=== PATIENT | male | born 1945 | race Caucasian/White ===

== ENCOUNTER → 2016-10-21 | Outpatient (CLI) | payer BC ==
[~2016-10-21] MED LIST: FERR324T PO; LACT10SO17; LSN/10125 PO; MOTION SICKNESS PO; POLY335025; POTA10CA28 PO; WARF1TAB PO
[2016-10-21 18:28] LABS: BLOOD UREA NITROGEN 23 mg/dl (7-18); BUN/CREATININE RATIO 20.5 (10-20); CALCIUM 9.2 mg/dl (8.5-10.1); CARBON DIOXIDE 27 mmol/L (21-32); CHLORIDE 109 mmol/L (98-107); GLUCOSE 161 mg/dl (70-99); POTASSIUM 4.2 mmol/L (3.5-5.1); SODIUM 143 mmol/L (136-145)
[2016-10-22 05:52] LABS: ESTIMATED AVERAGE GLUCOSE 169 mg/dl; HA1C FLAG Normal (Normal)
== END | disposition home or self-care (01) ==
LOC: C.LABPVFM 13:27
PROVIDERS: ATTEND Nurse Practitioner
DX: E11.9 Type 2 diabetes mellitus without complications (principal)

== ENCOUNTER → 2016-12-03 | Outpatient (CLI) | payer BC ==
[2016-12-03 17:43] LABS: BASO % 0.3 %; BASO ABS # 0.02 K/uL (0-0.2); COMPLETE YES; EOS % 1.9 %; HEMATOCRIT 42.4 % (42-52); IG% 0.8 %; LYMPH % 29.4 %; LYMPH ABS # 2.29 K/uL (1.2-3.4); MEAN CELL VOLUME 88.5 fL (80-100); MEAN CORPUSCULAR HEMOGLOBIN 29.6 pg (25-34); MEAN CORPUSCULAR HGB CONC 33.5 g/dl (32-36); MEAN PLATELET VOLUME 10.7 fL (7.4-10.4); MONO % 10.8 %; NEUT % 56.8 %; PLATELET COUNT 208 K/uL (130-400); RED BLOOD COUNT 4.79 M/uL (4.7-6.1); WHITE BLOOD COUNT 7.79 K/uL (4.8-10.8)
[2016-12-03 18:26] LABS: ALT/SGPT 27 U/L (12-78); BLOOD UREA NITROGEN 25 mg/dl (7-18); BUN/CREATININE RATIO 26.6 (10-20); CALCIUM 9.3 mg/dl (8.5-10.1); CARBON DIOXIDE 25 mmol/L (21-32); CHLORIDE 106 mmol/L (98-107); CREATININE 0.92 mg/dl (0.60-1.40); GLUCOSE 154 mg/dl (70-99); POTASSIUM 3.9 mmol/L (3.5-5.1); SODIUM 139 mmol/L (136-145)
[2016-12-03 18:40] LABS: LYME DISEASE AB IGG NEG (NEG); LYME DISEASE AB IGM NEG (NEG)
[2016-12-03 18:54] LABS: ALB/GLOB RATIO 0.9 (0.9-2); ALKALINE PHOSPHATASE 61 U/L (45-117); AST/SGOT 15 U/L (15-37)
== END | disposition home or self-care (01) ==
LOC: C.LABPVFM 14:37
PROVIDERS: ATTEND Nurse Practitioner
DX: R42 Dizziness and giddiness (principal); R53.83 Other fatigue; R40.0 Somnolence

== ENCOUNTER → 2017-04-15 | Outpatient (CLI) | payer BC ==
[2017-04-15 13:28] LABS: BLOOD UREA NITROGEN 26 mg/dl (7-18); BUN/CREATININE RATIO 28.1 (10-20); CARBON DIOXIDE 26 mmol/L (21-32); CHLORIDE 109 mmol/L (98-107); CREATININE 0.91 mg/dl (0.60-1.40); GLUCOSE 137 mg/dl (70-99); POTASSIUM 4.4 mmol/L (3.5-5.1); SODIUM 143 mmol/L (136-145)
[2017-04-15 13:33] LABS: CHOLESTEROL 94 mg/dl (0-200); CHOLESTEROL/HDL RATIO 2.9; HDL CHOLESTEROL 32 mg/dl; LDL CHOLESTEROL CALCULATED 38 mg/dl; TRIGLYCERIDES 122 mg/dl (0-150); VERY LOW DENSITY LIPOPROT CALC 24 mg/dl
[2017-04-15 13:34] LABS: ESTIMATED AVERAGE GLUCOSE 157 mg/dl; HA1C FLAG Normal (Normal)
== END | disposition home or self-care (01) ==
LOC: C.LABPVFM 07:27
PROVIDERS: ATTEND Nurse Practitioner
DX: E11.9 Type 2 diabetes mellitus without complications (principal); I10 Essential (primary) hypertension; E78.5 Hyperlipidemia, unspecified

== ENCOUNTER → 2017-09-08 | Outpatient (CLI) | payer BC ==
[~2017-09-08] MED LIST changes: +ASPCH81X PO; +ATOR10TA82 PO; +MECL1TAB42 PO; +MELO7.5T5 PO; +METF-384 PO; +VSC/5 PO
--- NOTE | 2017-09-08 13:51 | DIAGNOSTIC IMAGING REPORT ---
SOFT TISS HEAD/NECK-THYROID CLINICAL HISTORY: 72 years-old Male presenting with R13.10 [id number]. TECHNIQUE: Real-time grayscale and color Doppler ultrasound imaging of the thyroid and base of the neck was performed. COMPARISON: None. FINDINGS: Right lobe: Heterogeneous echotexture. The right lobe of the thyroid measures 4.7 x 1.9 x 1.3 cm. No parenchymal hyperemia. No nodules. Left lobe: Heterogeneous echotexture secondary to the presence of nodules. The left lobe of the thyroid measures 4.4 x 2.7 x 1.5 cm. No parenchymal hyperemia. Nodules enumerated below: 1. Dominant well-defined isoechoic wider than tall 3.8 x 2.6 x 1.2 cm nodule (low suspicion pattern). Isthmus: The isthmus measures 4 mm in thickness. No parenchymal hyperemia. No nodules. IMPRESSION: Low suspicion pattern nodule measuring 3.8 cm in the left thyroid lobe. Fine-needle aspiration recommended by size criteria for the [place] [employer] if this has not already been performed. Electronically signed by: Luis M Bhatti M.D. 09/08/2017 1:50 PM Dictated Date/Time: 09/08/2017 1:48 PM
== END | disposition home or self-care (01) ==
LOC: C.ULTR 13:01
PROVIDERS: ATTEND Family Medicine
DX: R13.10 Dysphagia, unspecified (principal); E04.1 Nontoxic single thyroid nodule

== ENCOUNTER → 2017-09-22 | Day surgery (SDC) | payer BC ==
[2017-09-16 08:31] VITALS: Ht 179.1 cm; Wt 106.8 kg
[~2017-09-22] VITALS: Ht 179.1 cm; Wt 106.8 kg
[~2017-09-22] MED LIST changes: -FERR324T PO; -LACT10SO17; +LIDOCAINE HCL 2% 2 ML VIAL (20MG/ML) ONE; -MOTION SICKNESS PO; -POLY335025; -POTA10CA28 PO; +PROPOFOL IV EMULSION 10 MG/ML 20 ML VIAL IV ONE; -WARF1TAB PO
[2017-09-22 08:13] VITALS: TEMP 36.5
--- NOTE | 2017-09-22 08:30 | Endo History and Physical ---
History & Physical Date of Service: Sep 22, 2017. Chief Complaint: dysphagia Referring Physician: Shanna STAUFFER History of Present Illness 72 yo CM who presents for EGD secondary to dysphagia. Past Surgical History Hx Cardiac Surgery: No Hx Internal Defibrillator: No Hx Pacemaker: No Hx Abdominal Surgery: No Hx of Implantable Prosthesis: No Hx Post-Op Nausea and Vomiting: No Hx Cancer Surgery: No Hx Thoracic Surgery: No Hx Orthopedic: Yes (RIGHT WRIST SURGERY, RT TKA) Hx Urinary Tract Surgery: No Family History None Social History Smoking Status: Former Smoker Hx Substance Use: No Hx Alcohol Use: No Allergies Coded Allergies: No Known Allergies (Verified , 09/22/17) Current Medications Reported Home Medications Medications Dose Route/Sig Max Daily Dose Days Date Category Vesicare (Solifenacin) 5 Mg Tab 5 Mg PO QPM 09/16/17 Reported Glucophage (Metformin Hcl) 1,000 Mg Tab 1,000 Mg PO BID 09/16/17 Reported Mobic (Meloxicam) 7.5 Mg Tab 7.5 Mg PO QPM 09/16/17 Reported Meclizine Hcl 25 Mg Tab 1 Tab PO BID 09/16/17 Reported Lisinopril/Hctz 10/12.5 Mg (HCTZ/Lisinopril) 1 Ea Tab 0.5 Tab PO QPM 09/16/17 Reported Lipitor (Atorvastatin Calcium) 10 Mg Tab 10 Mg PO QPM 09/16/17 Reported Aspirin Chewable (Aspirin) 81 Mg Chew 81 Mg PO QAM 09/16/17 Reported Vital Signs Weight (Kilograms): 106.82 Height (Feet): 5 Height (Inches): 10.5 Date Time Temp Pulse Resp B/P (MAP) Pulse Ox O2 Delivery O2 Flow Rate FiO2 09/22/17 08:13 36.5 72 18 104/70 (81) 97 Room Air Physical Exam General Appearance: WD/WN, no apparent distress Respiratory/Chest: Auscultation: breath sounds normal Cardiovascular: Heart Auscultation: RRR Abdomen: Bowel Sounds: normal Inspection & Palpation: soft, non-distended, no tenderness, guarding & rebound Assessment and Plan Assessment: 72 yo CM who presents for EGD secondary to dysphagia. Plan: Proceed with EGD.
--- NOTE | 2017-09-22 08:45 | Discharge Instructions ---
Endoscopy Patient Instructions Date / Procedure(s) Performed Sep 22, 2017. EGD Allergy Information Coded Allergies: No Known Allergies (Verified , 09/22/17) Discharge Date / Findings Sep 22, 2017. Reflux esophagitis Hiatal hernia Medication Instructions Stopped Medication(s): last dose all meds on Thursday including ASA 1) Start Protonix 40mg by mouth each morning 1/2 hour prior to breakfast. 2) OK to resume all other medications today as prescribed Reported Home Medications Medications Dose Route/Sig Max Daily Dose Days Date Category Vesicare (Solifenacin) 5 Mg Tab 5 Mg PO QPM 09/16/17 Reported Glucophage (Metformin Hcl) 1,000 Mg Tab 1,000 Mg PO BID 09/16/17 Reported Mobic (Meloxicam) 7.5 Mg Tab 7.5 Mg PO QPM 09/16/17 Reported Meclizine Hcl 25 Mg Tab 1 Tab PO BID 09/16/17 Reported Lisinopril/Hctz 10/12.5 Mg (HCTZ/Lisinopril) 1 Ea Tab 0.5 Tab PO QPM 09/16/17 Reported Lipitor (Atorvastatin Calcium) 10 Mg Tab 10 Mg PO QPM 09/16/17 Reported Aspirin Chewable (Aspirin) 81 Mg Chew 81 Mg PO QAM 09/16/17 Reported Provider Instructions Activity Restrictions - No exercising or heavy lifting for 24 hours. - Do not drink alcohol the day of the procedure. - Do not drive a car or operate machinery until the day after the procedure. - Do not make any important decisions or sign important papers in 24 hours after the procedure. Following Day: - Return to full activity which may include returning to work/school. Diet Start your diet with liquids and light foods (jello, soup, juice, toast). Then eat your usual diet if not nauseated. Treatment For Common After Affects For mild abdominal pain, bloating, or excessive gas: - Rest - Eat lightly - Lie on right side Follow-Up Information Follow-up with Shanna STAUFFER as scheduled Anesthesia Information What You Should Know You have had a procedure that required some medicine to reduce anxiety and discomfort. This treatment is called moderate sedation. After receiving the treatment, you may be sleepy, but you will be able to breathe on your own. The effects of the treatment may last for several hours. Follow these instructions along with Activity/Diet recommendations noted above: * Do NOT do anything where dizziness or clumsiness would be dangerous. * Rest quietly at home today, then you can be up and about tomorrow. * Have a responsible person stay with you the rest of today. * You may have had an I.V. today. If so, you may take the dressing off later today. Recommendations Call your doctor if: * Trouble breathing * Continuous vomiting for more than 24 hours * Temperature above 101 degrees * Severe abdominal pain or bloating * Pain not relieved by pain medicine ordered * There is increased drainage or redness from any incision * A large amount of rectal bleeding greater than 2-3 tablespoons. (If you had a polyp/s removed or have hemorrhoids, a small amount of blood - from the rectum is to be expected.) * You have any unanswered questions or concerns. IN THE EVENT OF A SERIOUS EMERGENCY, GO TO THE NEAREST EMERGENCY ROOM Your discharge instructions were prepared by provider Bentley Johnson. Patient Instructions Signature Page Rodri Urrutia Patient (or Guardian) Signature/Date: I have read and understand the instructions given to me by my caregivers. Caregiver/RN/Doctor Signature/Date: The above-named patient and/or guardian has received patient instructions on this date. + Original Patient Signature Page (only) stays with chart. Please make copy for patient.
--- NOTE | 2017-09-22 08:54 | GI REPORT ---
Procedure Date: 09/22/2017 8:24 AM Procedure: Upper GI endoscopy Indications: Dysphagia Medicines: Monitored Anesthesia Care Complications: No immediate complications. Estimated Blood Loss: Estimated blood loss: none. Procedure: Pre-Anesthesia Assessment: - Prior to the procedure, a History and Physical was performed, and patient medications and allergies were reviewed. The patient's tolerance of previous anesthesia was also reviewed. The risks and benefits of the procedure and the sedation options and risks were discussed with the patient. All questions were answered, and informed consent was obtained. Prior Anticoagulants: The patient has taken aspirin, last dose was 3 days prior to procedure. ASA Grade Assessment: II - A patient with mild systemic disease. After reviewing the risks and benefits, the patient was deemed in satisfactory condition to undergo the procedure. After obtaining informed consent, the endoscope was passed under direct vision. Throughout the procedure, the patient's blood pressure, pulse, and oxygen saturations were monitored continuously. The scope was introduced through the mouth, and advanced to the second part of duodenum. The upper GI endoscopy was accomplished without difficulty. The patient tolerated the procedure well. Findings: LA Grade C (one or more mucosal breaks continuous between tops of 2 or more mucosal folds, less than 75% circumference) esophagitis with no bleeding was found. Biopsies were taken with a cold forceps for histology. A small hiatal hernia was present. The examined duodenum was normal. Impression: - LA Grade C reflux esophagitis. Biopsied. - Small hiatal hernia. - Normal examined duodenum. Recommendation: - Resume previous diet. - Use Protonix (pantoprazole) 40 mg PO daily. - Continue present medications. - Await pathology results. - Return to primary care physician as previously scheduled. Bentley Johnson DO 09/22/2017 8:53:57 AM This report has been signed electronically. Note Initiated On: 09/22/2017 8:24 AM I attest to the content of the Intraoperative Record and orders documented therein, exceptions below
--- NOTE | 2017-09-22 09:15 | Anesthesiology Progress Note ---
Anesthesia Post Op Note Date & Time Sep 22, 2017 at 09:14 Vital Signs Pain Intensity: 0 Vital Signs Past 12 Hours Date Time Temp Pulse Resp B/P (MAP) Pulse Ox O2 Delivery O2 Flow Rate FiO2 09/22/17 09:03 67 16 111/74 (86) 96 Room Air 09/22/17 08:48 81 16 97/64 (75) 96 Room Air 09/22/17 08:13 36.5 72 18 104/70 (81) 97 Room Air Notes Mental Status: alert / awake / arousable, participated in evaluation Pt Amnestic to Procedure: Yes Nausea / Vomiting: adequately controlled Pain: adequately controlled Airway Patency, RR, SpO2: stable & adequate BP & HR: stable & adequate Hydration State: stable & adequate Anesthetic Complications: no major complications apparent
[2017-09-22 09:18] VITALS: BP 121/77; PULSE 68; O2SAT 96
== END | disposition home or self-care (01) ==
LOC: C.GI 07:49
PROVIDERS: ATTEND Internal Medicine
DX: R13.10 Dysphagia, unspecified (principal); K20.9 Esophagitis, unspecified; K44.9 Diaphragmatic hernia without obstruction or gangrene; E11.9 Type 2 diabetes mellitus without complications; I10 Essential (primary) hypertension; E78.5 Hyperlipidemia, unspecified; M19.90 Unspecified osteoarthritis, unspecified site; Z87.891 Personal history of nicotine dependence; Z96.651 Presence of right artificial knee joint

== ENCOUNTER → 2017-09-23 | Outpatient (CLI) | payer BC ==
[~2017-09-23] MED LIST changes: -LIDOCAINE HCL 2% 2 ML VIAL (20MG/ML) ONE; -PROPOFOL IV EMULSION 10 MG/ML 20 ML VIAL IV ONE
--- NOTE | 2017-09-23 14:19 | DIAGNOSTIC IMAGING REPORT ---
ULTRASOUND GUIDED FINE-NEEDLE ASPIRATION BIOPSY OF A LEFT THYROID NODULE CLINICAL HISTORY: Left lobe thyroid nodule COMPARISON STUDY: Thyroid ultrasonography dated 09/08/2017 FINDINGS: A timeout was performed. The risks the procedure were explained the patient informed consent was obtained. The patient was prepped in sterile fashion. The skin was anesthetized 1% lidocaine. Under ultrasound guidance, 3 passes utilizing a 25-gauge needle were performed into the dominant left lobe thyroid nodule. Initial pathologic review indicates satisfactory material for diagnosis. There were no immediate complications. IMPRESSION: Successful ultrasound-guided fine-needle aspiration biopsy of a dominant left lobe thyroid nodule. Electronically signed by: Johan Shell M.D. 09/23/2017 2:18 PM Dictated Date/Time: 09/23/2017 2:17 PM
== END | disposition home or self-care (01) ==
LOC: C.ULTR 12:11
PROVIDERS: ATTEND Family Medicine
DX: E04.1 Nontoxic single thyroid nodule (principal)

== ENCOUNTER → 2017-10-19 | Outpatient (CLI) | payer BC ==
--- NOTE | 2017-10-19 10:46 | DIAGNOSTIC IMAGING REPORT ---
CHEST 2 VIEWS ROUTINE CLINICAL HISTORY: PULMONARY NODULES COMPARISON STUDY: Chest CT October 26, 2014. FINDINGS: Lung volumes are at the lower limits of normal. No pneumothorax or pleural effusion is present. There is no evidence for pulmonary edema. Cardiomediastinal silhouette is stable. The previously described pulmonary nodules are not well visualized by radiography. A possible 2.7 cm nodular density projects over the heart on lateral projection may be within the right middle lobe. IMPRESSION: Suspected nodular right middle lobe opacities which are difficult to evaluate by radiography. A follow-up chest CT is recommended to evaluate the previously described right middle lobe nodules. Electronically signed by: García Cornell M.D. 10/19/2017 10:44 AM Dictated Date/Time: 10/19/2017 10:40 AM
[2017-10-19 13:04] LABS: BLOOD UREA NITROGEN 24 mg/dl (7-18); CALCIUM 8.9 mg/dl (8.5-10.1); CARBON DIOXIDE 23 mmol/L (21-32); CREATININE 1.03 mg/dl (0.60-1.40); GLUCOSE 165 mg/dl (70-99); POTASSIUM 4.2 mmol/L (3.5-5.1); SODIUM 137 mmol/L (136-145)
[2017-10-19 13:08] LABS: HEMOGLOBIN A1C 7.1 % (4.5-5.6)
== END | disposition home or self-care (01) ==
LOC: C.LABPVFM 10:13
PROVIDERS: ATTEND Nurse Practitioner
DX: R91.8 Other nonspecific abnormal finding of lung field (principal)

== ENCOUNTER 2022-10-25 14:42 | Inpatient (IN) ==
--- NOTE | 2022-10-25 15:36 | Emergency Department Note ---
History of Present Illness General Chief complaint: Weakness Stated complaint: Fall, weakness Time Seen by Provider: 10/25/22 15:13 Source: patient, family, EMS (I reviewed the notes from EMS) and old records reviewed (I have reviewed the office notes from 08-12-2022) Mode of arrival: ambulatory Limitations: no limitations History of Present Illness Maximum Pain Intensity: 6 This patient is a 77-year-old male has history of vascular dementia, comes in after having increasing weakness. His says he is rarely 100% and he is also has some mild confusion. Around 8:00 this morning she noticed he was on the floor next to his very low bed. He was laying on the carpet. She checked him in the middle the night and he was in bed. There is no trauma she could not get him up she thought he was fine otherwise so she called EMS for a lift assist around 10:00 in the morning as she could not get a hold of her son. They came and lifted him up checked amount his blood sugar was 226 his vitals look good and they called here and they all decided to keep him at home she said later on he was sitting in a chair and she can get him out he seemed just too weak he can normally walk to the bathroom with a walker. He said no blood or melena in his stool that she knows of no fever no urinary symptoms other he is baseline incontinent. He did have a cough recently. His weakness has been nonfocal and diffuse. Home Medications Medication Instructions Recorded Confirmed Type aspirin 81 mg tablet,delayed 81 mg PO DAILY 04/22/18 10/25/22 History release cyanocobalamin (vitamin B-12) 1,000 mcg PO DAILY 10/15/20 10/25/22 History 1,000 mcg capsule metformin 1,000 mg tablet 1,000 mg PO BID #60 tabs 12/25/21 10/25/22 Rx magnesium oxide 400 mg PO DAILY #30 tabs 02/21/22 10/25/22 Rx memantine 10 mg tablet (Namenda) 10 mg PO BID #60 tabs 03/25/22 10/25/22 Rx atorvastatin 10 mg tablet 10 mg PO HS #90 tabs 04/03/22 10/25/22 Rx sitagliptin phosphate 50 mg tablet 50 mg PO DAILY #90 tabs 04/23/22 10/25/22 Rx (Januvia) hydrocortisone 2.5 % topical cream 1 applic OH DAILY PRN hemorrhoids 06/18/22 10/25/22 Rx with perineal applicator #30 grams (Proctosol HC) pantoprazole 40 mg tablet,delayed See Rx Instructions .Route 06/18/22 10/25/22 Rx release .COMPLEX #30 tabs donepezil 10 mg tablet 10 mg PO DAILY #90 tabs 07/11/22 10/25/22 Rx cholecalciferol (vitamin D3) 25 3,000 unit PO DAILY 09/05/22 10/25/22 History mcg (1,000 unit) capsule bupropion HCl 150 mg 24 hr tablet, 150 mg PO QAM 10/25/22 10/25/22 History extended release (Wellbutrin XL) Allergies Allergy/AdvReac Type Severity Reaction Status Date / Time No Known Allergies Allergy Verified 09/05/22 11:32 Past Med/Surg History Medical History Chronic cerebral ischemia Degenerative disc disease Diverticulosis of colon Hemorrhoid Metaplasia of esophagus Orthostatic hypotension Osteoarthritis Overactive bladder Pulmonary nodules Smokeless tobacco use Solitary thyroid nodule VBI (vertebrobasilar insufficiency) Surgical History H/O vasectomy History of knee replacement Right History of tooth extraction Family History Mother Family history of diabetes mellitus Breast cancer Grandmother (Paternal) Myocardial infarction Denies family history of Ovarian cancer Prostate cancer Colorectal cancer Social History Smoking Status: Never smoker Tobacco Type: Smokeless Tobacco (Dip or Chew) Cigarettes Per Day: CHEWS ON A CIGAR EVERY ONCE IN A WHILE; Second Hand Exposure: No; Do You Dip or Chew Tobacco: Yes; Hx Alcohol Use: No Hx Substance Use: No Preferred Language: Turkmen Communication Ability: Effective Visual Impairment: Limited Hearing Ability: Normal Design Engineering Intern Required: No Beliefs That Will Affect Care: None marital status: Current Living Situation: Spouse current occupational status: retired How many Children do You have: 1 Feels Safe at Home: Yes Childhood Exposure to Second-Hand Smoke: Yes Diet: diabetic caffeine: Yes during the past year weight has: remained stable Dental Care, Regularly: No Physical Activity Frequency: 1-2 Times per Week Seatbelt Use: always Sunscreen Use: No Do you think of yourself as: straight/heterosexual Gender Identity: Male Assistive Devices: Cane, Denture - Upper, Denture - Lower and Glasses Review of Systems A total of 10 systems reviewed and were otherwise negative Physical Exam Vital Signs Vital Signs - 24 hr 10/25/22 14:52 10/25/22 15:00 10/25/22 15:53 Temperature 37.4 C Temperature Source Oral Pulse Rate 117 H 114 H Pulse Rate [Right Finger] Pulse Rhythm Regular Pulse Strength Normal Respiratory Rate 20 Respiratory Effort / Characteristics Non-Labored Spontaneous Respiratory Depth Normal Respiratory Pattern Regular Blood Pressure 137/94 Blood Pressure [Right Arm] Blood Pressure Mean 108 Blood Pressure Mean [Right Arm] Blood Pressure Position Sitting Pulse Oximetry 91 Oxygen Delivery Method Room Air Room Air Sepsis Recent Fever Within 48 Hours No Sepsis New/Unexplained Change in Mental Status No Sepsis Action Taken by Nursing No Action Required 10/25/22 14:53 10/25/22 16:45 Temperature Temperature Source Pulse Rate Pulse Rate [Right Finger] 112 H 112 H Pulse Rhythm Pulse Strength Respiratory Rate 20 20 Respiratory Effort / Characteristics Non-Labored Non-Labored Respiratory Depth Normal Normal Respiratory Pattern Blood Pressure Blood Pressure [Right Arm] 120/84 120/84 Blood Pressure Mean Blood Pressure Mean [Right Arm] 96 96 Blood Pressure Position Pulse Oximetry 91 Oxygen Delivery Method Room Air Room Air Sepsis Recent Fever Within 48 Hours Sepsis New/Unexplained Change in Mental Status Sepsis Action Taken by Nursing General: Well developed well nourished [id number] older male who in no acute distress, breathing comfortably on room air. Normal speech. He is alert and oriented to person and place and answers most questions appropriately. HEENT: Normal cephalic atraumatic. Pupils are equal round and reactive to light. Extraocular movements are intact. Oropharynx is pink with moist mucous membranes. No swelling of the mouth lips or tongue. Neck: Supple with a midline trachea. No meningeal signs or stiffness, no JVD or bruits. No Stridor. Chest: Clear to auscultation bilaterally. No wheezes or rhonchi. No increased work of breathing. Heart: Regular rate and rhythm without murmurs or gallops. Abdomen: Soft nontender, nondistended without rebound guarding or rigidity. Extremities: No cyanosis clubbing or edema. No calf tenderness or assymetry Spine/Back. Non tender to palpation. No CVA tenderness Skin: Good turgor without rashes. Neurologic exam: Cranial nerves two through 12 are intact. Motor and sensation are intact and symmetrical throughout. Course Administered Medications Discontinued Medications Sodium Chloride (Nss 1000ml) 500 mls @ 999 mls/hr IV .Q31M ONE Stop: 10/25/22 17:30 Last Infusion: 10/25/22 17:36 Dose: 0 mls/hr Documented By: Admin: 10/25/22 17:05 Dose: 999 mls/hr Documented By: NRB Ceftriaxone Sodium (Rocephin) 2,000 mg in 70 mls @ 140 mls/hr IV NOW STA Stop: 10/25/22 17:48 Last Admin: 10/25/22 17:56 Dose: 140 mls/hr Documented By: KEVIN Medical Decision Making Differential Diagnosis Worsening of dementia, infection, UTI, anemia, trauma, intracranial hemorrhage, CVA, electrolyte or metabolic abnormality Medical Records Attestation: I reviewed the patient's medical records. Home Medications Current Medication List: was personally reviewed by me Laboratory Data Attestation: I reviewed the patient's lab results. 10/25/22 14:53 10/25/22 14:53 Lab Results 10/25/22 10/25/22 10/25/22 Range/Units 14:53 14:53 14:53 WBC 8.27 (4.8-10.8) K/ul RBC 5.30 (4.70-6.10) M/uL Hgb 15.8 (14.0-18.0) g/dl Hct 46.0 (42.0-52.0) % MCV 86.8 (80.0-100.0) fL MCH 29.8 (25.0-34.0) pg MCHC 34.3 (32.0-36.0) g/dL RDW Std Deviation 43.4 (36.4-46.3) fL RDW Coeff of Adamaris 13.9 (11.5-14.5) % Plt Count 215 (130-400) K/uL MPV 10.6 (9.4-12.4) fL Immature Gran % (Auto) 1.1 % Neut % (Auto) 70.7 % Lymph % (Auto) 13.5 % [place] % (Auto) 13.1 % Eos % (Auto) 0.8 % Baso % (Auto) 0.8 % Neut # (Auto) 5.84 (1.40-6.50) K/uL Lymph # (Auto) 1.12 L (1.2-3.4) K/uL [place] # (Auto) 1.08 H (0.11-0.59) K/uL Eos # (Auto) 0.07 (0-0.50) K/uL Baso # (Auto) 0.07 (0-0.2) K/uL Immature Gran # (Auto) 0.09 (0.01-0.20) K/uL PT 10.6 (9.0-12.0) Seconds INR 1.0 (0.9-1.1) APTT 25.2 (21.0-31.0) Seconds PTT Ratio 0.9 Sodium 137 (136-145) mmol/L Potassium 4.2 (3.5-5.1) mmol/L Chloride 100 (98-107) mmol/L Carbon Dioxide 25 (21-32) mmol/L Anion Gap 12 H (3-11) BUN 18 (6-23) mg/dl Creatinine 1.03 (0.6-1.4) mg/dl Est Cr Clr Drug Dosing 73.6 ml/min Est GFR ( Amer) 80.8 ml/min Est GFR (Non-Af Amer) 69.7 ml/min BUN/Creatinine Ratio 17.5 (10-20) Glucose 160 H (70-99(Fasting)) mg/dl Lactate (0.4-2.0) mmol/L Calcium 9.3 (8.6-10.3) mg/dl Magnesium 1.7 (1.7-2.4) mg/dl Total Bilirubin 0.4 (0.2-1.0) mg/dl AST 34 (13-39) U/L ALT 54 H (7-52) U/L Alkaline Phosphatase 55 (34-104) U/L Total Creatine Kinase 50 (30-223) U/L Troponin I High Sens 11.9 (0-20) pg/ml B-Natriuretic Peptide (0-100) pg/ml Total Protein 7.5 (6.0-8.3) gm/dl Albumin 4.0 (3.4-5.0) gm/dl Globulin 3.5 (2.5-4.0) gm/dl Albumin/Globulin Ratio 1.1 (0.9-2) TSH (0.300-4.500) uIu/ml SARS-CoV-2, RNA, NAAT (NEGATIVE) 10/25/22 10/25/22 10/25/22 Range/Units 14:53 15:49 16:14 WBC (4.8-10.8) K/ul RBC (4.70-6.10) M/uL Hgb (14.0-18.0) g/dl Hct (42.0-52.0) % MCV (80.0-100.0) fL MCH (25.0-34.0) pg MCHC (32.0-36.0) g/dL RDW Std Deviation (36.4-46.3) fL RDW Coeff of [place] (11.5-14.5) % Plt Count (130-400) K/uL MPV (9.4-12.4) fL Immature Gran % (Auto) % Neut % (Auto) % Lymph % (Auto) % [place] % (Auto) % Eos % (Auto) % Baso % (Auto) % Neut # (Auto) (1.40-6.50) K/uL Lymph # (Auto) (1.2-3.4) K/uL [place] # (Auto) (0.11-0.59) K/uL Eos # (Auto) (0-0.50) K/uL Baso # (Auto) (0-0.2) K/uL Immature Gran # (Auto) (0.01-0.20) K/uL PT (9.0-12.0) Seconds INR (0.9-1.1) APTT (21.0-31.0) Seconds PTT Ratio Sodium (136-145) mmol/L Potassium (3.5-5.1) mmol/L Chloride (98-107) mmol/L Carbon Dioxide (21-32) mmol/L Anion Gap (3-11) BUN (6-23) mg/dl Creatinine (0.6-1.4) mg/dl Est Cr Clr Drug Dosing ml/min Est GFR ( Amer) ml/min Est GFR (Non-Af Amer) ml/min BUN/Creatinine Ratio (10-20) Glucose (70-99(Fasting)) mg/dl Lactate (0.4-2.0) mmol/L Calcium (8.6-10.3) mg/dl Magnesium (1.7-2.4) mg/dl Total Bilirubin (0.2-1.0) mg/dl AST (13-39) U/L ALT (7-52) U/L Alkaline Phosphatase (34-104) U/L Total Creatine Kinase (30-223) U/L Troponin I High Sens (0-20) pg/ml B-Natriuretic Peptide 18 (0-100) pg/ml Total Protein (6.0-8.3) gm/dl Albumin (3.4-5.0) gm/dl Globulin (2.5-4.0) gm/dl Albumin/Globulin Ratio (0.9-2) TSH 1.399 (0.300-4.500) uIu/ml SARS-CoV-2, RNA, NAAT NEGATIVE (NEGATIVE) 10/25/22 Range/Units 16:14 WBC (4.8-10.8) K/ul RBC (4.70-6.10) M/uL Hgb (14.0-18.0) g/dl Hct (42.0-52.0) % MCV (80.0-100.0) fL MCH (25.0-34.0) pg MCHC (32.0-36.0) g/dL RDW Std Deviation (36.4-46.3) fL RDW Coeff of [place]aris (11.5-14.5) % Plt Count (130-400) K/uL MPV (9.4-12.4) fL Immature Gran % (Auto) % Neut % (Auto) % Lymph % (Auto) % [place] % (Auto) % Eos % (Auto) % Baso % (Auto) % Neut # (Auto) (1.40-6.50) K/uL Lymph # (Auto) (1.2-3.4) K/uL [place] # (Auto) (0.11-0.59) K/uL Eos # (Auto) (0-0.50) K/uL Baso # (Auto) (0-0.2) K/uL Immature Gran # (Auto) (0.01-0.20) K/uL PT (9.0-12.0) Seconds INR (0.9-1.1) APTT (21.0-31.0) Seconds PTT Ratio Sodium (136-145) mmol/L Potassium (3.5-5.1) mmol/L Chloride (98-107) mmol/L Carbon Dioxide (21-32) mmol/L Anion Gap (3-11) BUN (6-23) mg/dl Creatinine (0.6-1.4) mg/dl Est Cr Clr Drug Dosing ml/min Est GFR ( Amer) ml/min Est GFR (Non-Af Amer) ml/min BUN/Creatinine Ratio (10-20) Glucose (70-99(Fasting)) mg/dl Lactate 5.3 H* (0.4-2.0) mmol/L Calcium (8.6-10.3) mg/dl Magnesium (1.7-2.4) mg/dl Total Bilirubin (0.2-1.0) mg/dl AST (13-39) U/L ALT (7-52) U/L Alkaline Phosphatase (34-104) U/L Total Creatine Kinase (30-223) U/L Troponin I High Sens (0-20) pg/ml B-Natriuretic Peptide (0-100) pg/ml Total Protein (6.0-8.3) gm/dl Albumin (3.4-5.0) gm/dl Globulin (2.5-4.0) gm/dl Albumin/Globulin Ratio (0.9-2) TSH (0.300-4.500) uIu/ml SARS-CoV-2, RNA, NAAT (NEGATIVE) Imaging Data Attestation: I personally reviewed and interpreted this imaging study as follows: My Impression: Chest x-rayno acute infiltrate, failure, pneumothorax seen. Head CTno hemorrhage or mass effect Radiologist's Impression: Chest X-Ray 10/25/22 15:28 XR chest 1V portable HISTORY: weakness COMPARISON: Chest CT 10/30/2017. FINDINGS: There are low lung volumes. No pneumothorax. No pleural effusions. No focal lung consolidations to suggest a pneumonia. No evidence for pulmonary edema. The heart is normal in size. IMPRESSION: No acute process. ACT 112: Negative or not required by law. Electronically signed by: Jonnie eBrman M.D. 10/25/2022 4:[address] 10/25/22 15:[address] DOSE: 962.98 mGy.cm HISTORY: Increasing weakness and confusion TECHNIQUE: Multiaxial CT images of the head were performed without the use of intravenous contrast. Automated exposure control was utilized for this study. A dose lowering technique was utilized adhering to the principles of ALARA. Comparison: Brain MRI 04/07/2019. Findings: The paranasal sinuses and mastoid air cells are clear. The calvarium and skull base are intact. There is no mass, hematoma, midline shift, acute infarct. White matter hypodensity is nonspecific but suggestive of moderate microvascular ischemic change. The ventricles and sulci demonstrate moderate age-related involutional changes. Impression: No acute intracranial abnormality. Atrophy and microvascular ischemic changes. ACT 112: Negative or not required by law. Electronically signed by: Jonnie Berman M.D. 10/25/2022 4:16 PM ECG Data Attestation: I personally reviewed and interpreted this ECG as follows: Indication: + weakness Rate (beats per minute): 116 Rhythm: + sinus tachycardia ECG Intervals/blocks: + Left anterior fascicular block, + Normal QRS, + Normal QT and + Normal OH ECG [place]: + Left axis deviation ECG ST segments: + Normal ST segments ECG Findings: no PACs or no PVCs Comparison ECG Date: from (11/10/2011) Change: the following changes noted (Rate has increased otherwise no significant change) MDM Narrative This patient comes in as described above he has had increasing weakness and may have fallen. The bed is at a very low height and there is carpet. He was on the floor for more than a couple hours at max. Patient denies any complaints at present. The had to call the ambulance and then he was weak again and she called her son who helped her get him in the car to bring him here. This is atypical for him his symptoms seem nonfocal. IV access established EKG was obtained CAT scan of his head and multiple blood testing was obtained I also ord ered blood cultures and lactic acid as well as a cath urine. He was reassessed frequently. CAT scan of his head is unremarkable. He has no fever or white count discussed infection. No significant anemia. He has no severe electrolyte or metabolic abnormalities. Urinalysis shows 1+ ketones otherwise unremarkable. Lactic acid was elevated in the 5.4 range. He is no source of infection at this point but given the elevation, I did order Rocephin 2 g IV as well as IV fluids. The patient's had increasing weakness so it is possible that he does have an infection. He looks well otherwise besides being diffusely weak. I do think he needs to be admitted for further treatment and evaluation. COVID testing was negative. Blood and urine cultures are pending. [facility] the patient [facility] ER for these measures. Continuous cardiac monitoring: Orders placed in EMR for continuous cardiac monitoring. Upon my evaluation patient noted be in sinus tachycardia with a rate of 114. Impression & Plan Weakness, Diabetes mellitus, type 2, Fall, Elevated lactic acid level Discharge Plan Visit Data Chief Complaint: Weakness Stated Complaint: Fall, weakness ED Provider: Jacob Dwyer Discharge Problem: Weakness, Diabetes mellitus, type 2, Fall, Elevated lactic acid level Patient Disposition: Admitted As Inpatient Discharge Instructions Interventions: ED Discharge Assessment Last Done: 10/25/22 17:51
[2022-10-25 15:52] LABS: Basophils # (auto) 0.07 K/uL (0-0.2); Basophils % (auto) 0.8 %; Eosinophils # (auto) 0.07 K/uL (0-0.50); Eosinophils % (auto) 0.8 %; Hemoglobin 15.8 g/dl (14.0-18.0); Immature Granulocytes # (auto) 0.09 K/uL (0.01-0.20); Immature Granulocytes % (auto) 1.1 %; Lymphocytes # (auto) 1.12 K/uL (1.2-3.4); Lymphocytes % (auto) 13.5 %; Mean Corpuscular Hemoglobin 29.8 pg (25.0-34.0); Mean Corpuscular Hgb Conc 34.3 g/dL (32.0-36.0); Mean Corpuscular Volume 86.8 fL (80.0-100.0); Mean Platelet Volume 10.6 fL (9.4-12.4); Monocytes # (auto) 1.08 K/uL (0.11-0.59); Monocytes % (auto) 13.1 %; Neutrophils # (auto) 5.84 K/uL (1.40-6.50); Neutrophils % (auto) 70.7 %; Platelet Count 215 K/uL (130-400); RDW Coefficient of Variation 13.9 % (11.5-14.5); RDW Standard Deviation 43.4 fL (36.4-46.3); White Blood Count 8.27 K/ul (4.8-10.8)
[2022-10-25 15:57] LABS: Albumin Globulin Ratio 1.1 (0.9-2); BUN Creatinine Ratio 17.5 (10-20); Bilirubin,Total 0.4 mg/dl (0.2-1.0); Calcium 9.3 mg/dl (8.6-10.3); Creatinine Clr Calc Pharmacy 73.6 ml/min; Est GFR (African American) 80.8 ml/min; Est GFR (Non-African American) 69.7 ml/min; Globulin 3.5 gm/dl (2.5-4.0); Magnesium 1.7 mg/dl (1.7-2.4); Potassium 4.2 mmol/L (3.5-5.1); Total Protein 7.5 gm/dl (6.0-8.3)
[2022-10-25 16:03] LABS: Troponin I High Sensitivity 11.9 pg/ml (0-20)
--- NOTE | 2022-10-25 16:18 | CT Scan Report ---
HEAD CT NONCONTRAST CT DOSE: 962.98 mGy.cm HISTORY: Increasing weakness and confusion TECHNIQUE: Multiaxial CT images of the head were performed without the use of intravenous contrast. A utomated exposure control was utilized for this study. A dose lowering technique was utilized adheri ng to the principles of ALARA. Comparison: Brain MRI 04/07/2019. Findings: The paranasal sinuses and mastoid air cells are clear. The calvarium and skull base are int act. There is no mass, hematoma, midline shift, acute infarct. White matter hypodensity is nonspecifi c but suggestive of moderate microvascular ischemic change. The ventricles and sulci demonstrate mode rate age-related involutional changes. Impression: No acute intracranial abnormality. Atrophy and microvascular ischemic changes. ACT 112: Negative or not required by law. Electronically signed by: Jonnie Berman M.D. 10/25/2022 4:16 PM
[2022-10-25 16:20] LABS: Partial Thromboplastin Ratio 0.9; Partial Thromboplastin Time 25.2 Seconds (21.0-31.0); Prothrombin Time 10.6 Seconds (9.0-12.0)
--- NOTE | 2022-10-25 16:29 | XRay Report ---
XR chest 1V portable HISTORY: weakness COMPARISON: Chest CT 10/30/2017. FINDINGS: There are low lung volumes. No pneumothorax. No pleural effusions. No focal lung consolidat ions to suggest a pneumonia. No evidence for pulmonary edema. The heart is normal in size. IMPRESSION: No acute process. ACT 112: Negative or not required by law. Electronically signed by: Jonnie Berman M.D. 10/25/2022 4:28 PM
[2022-10-25] MEDS ORDERED: SODIUM CHLORIDE 0.9% 1000ML 500 ML IV ONE (17:00)
[2022-10-25] MEDS ORDERED: cefTRIAXone SODIUM 2,000 MG/70 ML BAG IV STA (17:19)
--- NOTE | 2022-10-25 17:37 | History & Physical Report ---
Date of Service October 25, 2022 Assessment & Plan (1) Weakness: Plan: -Admit to med/tele -Currently stable -At this time the differential for the patient's acute weakness includes but is not limited to viral illness, dehydration, mechanical fall, arrhythmia, stroke, and progression of his known dementia/parkinsonism -No leukocytosis, UA negative, CXR without consolidation, no fever, or other acute findings to suggest acute bacterial infection -Patient has a leukopenia with URI symptoms starting yesterday, will order full respiratory biofire for further evaluation -S/P 2gm Ceftriaxone in the ED, will hold additional abx for now -Blood cultures obtained in the ED, follow -No acute focal neuro defects on exam, CT head was negative for acute findings today, could consider a non-emergent MRI of the brain for further assessment if the rest of his initial workup is negative -ALT minimially elevated at 54, could also be associated with an acute viral illness -Will consult PT/OT, fall and aspiration precautions ordered -Symptomatic tx for URI symptoms with BID mucinex, DuoNeb trial, and incentive spirometry -Will otbain bedside dysphagia screen before ordering diet -BL SCD's and SQ lovenox for DVT PPX -AM CBC, CMP, Mag (2) Fall: Plan: -Patient was found on the ground this am by his , unsure what time he went out of bed -His bed is only inches off the ground per , no acute trauma on exam -Unsure how long he was down for, will obtain CK level for further assessment -Monitor on tele for now for possible arrhythmias -PT/OT consults placed (3) Elevated lactic acid level: Plan: -Initial lactate elevated at 5.3, likely due to acute dehydration -AG elevated at 12 with bicarb WNL -S/P 1L NSS in the ED, will give 1L Normosol now, will likely continue light IV hydration overnight as he appears clinically dry -Will follow 2 hour repeat lactate (4) Depression: Plan: -Continue wellbutrin (5) Dementia: Plan: -Continue memantine and donepezil (6) RAZ (obstructive sleep apnea): Plan: -Does not comply with CPAP with his dementia (7) Hyperlipidemia: Plan: -Hold statin until CK level results (8) Diabetes mellitus, type 2: Plan: -Hold metformin and sitagliptin -Monitor BSG AHCS, goal is 110-160 -5 units lantus BID, CF 50 -DM II diet -Adjust regimen as needed (9) Alvarado's esophagus: Plan: -Continue pantoprazole (10) Hypertension: Plan: -Stable off antihypertensives -Continue to monitor Plan The patient was discussed with Dr. Perry at the time of the admission History of Present Illness Chief Complaint: Generalized weakness, fall out of bed Primary Care Provider: EH Leiva Rodri is a 77 year old male with a PMH signficiant for Dementia, DM II, parkinsonism, RAZ, and alvarado's esophagus who presented to the [facility] ED on 10/25 via EMS for generalized weakness and a fall out of bed this am. Per the ED staff, the patient sleeps on a mattress on the floor on the first floor and his watches him on a camera from their bedroom. When she woke this am she found him on the ground next to the bed. Of note, the patient's bed/mattress in only a few inches off the ground. EMS was called who helped get him up and vitals were normal. Ems initially left but had to return as the patient was too weak to get out of the chair later in the day. In the ED he was noted to be tachycardic with HR in the 110's but otherwise stable. Labs were significant for a lymphopenia of 1.12, AG of 12 with bicarb of 25, glucose of 160, lactate of 5.3, ALT of 54. Ct of the head and CXR were negative for acute findings. Prior to admission the patient was given 1L NSS and 2gm ceftriaxone. At the time of the exam the patient was lying in bed in no acute distress with his and son/POA sitting bedside, history was obtained from the family due to the patient's mental status. They state that yesterday t he patient started to develop a cough with yellow sputum and appeared a little weaker than his baseline. His was giving him BID Mucinex for his symptoms, she noticed that he was not eating as much as he normally does yesterday. Once EMS got him into the chair today he was initially doing well, but his new BL LE weakness is new for him. He has some chronic LE weakness but is typically able to walk with a walker or cane without issue. They are unsure of the time when he fell out of bed and how long her was on the ground for. They deny recent fever, chills, and he denies chest pain, SOB, abd pain, nausea, vomiting, diarrhea, dysuria, hematuria, LE swelling and other recent trauma. The patient is a full code and his Son is his POA. Please refer to Dr. Perry's attestation for any changes to the treatment plan Allergies Allergy/AdvReac Type Severity Reaction Status Date / Time No Known Allergies Allergy Verified 09/05/22 11:32 Home Medications Medication Instructions Recorded Confirmed Type aspirin 81 mg tablet,delayed 81 mg PO DAILY 04/22/18 10/25/22 History release cyanocobalamin (vitamin B-12) 1,000 mcg PO DAILY 10/15/20 10/25/22 History 1,000 mcg capsule metformin 1,000 mg tablet 1,000 mg PO BID #60 tabs 12/25/21 10/25/22 Rx magnesium oxide 400 mg PO DAILY #30 tabs 02/21/22 10/25/22 Rx memantine 10 mg tablet (Namenda) 10 mg PO BID #60 tabs 03/25/22 10/25/22 Rx atorvastatin 10 mg tablet 10 mg PO HS #90 tabs 04/03/22 10/25/22 Rx sitagliptin phosphate 50 mg tablet 50 mg PO DAILY #90 tabs 04/23/22 10/25/22 Rx (Januvia) hydrocortisone 2.5 % topical cream 1 applic [place] DAILY PRN hemorrhoids 06/18/22 10/25/22 Rx with perineal applicator #30 grams (Proctosol HC) pantoprazole 40 mg tablet,delayed See Rx Instructions .Route 06/18/22 10/25/22 Rx release .COMPLEX #30 tabs donepezil 10 mg tablet 10 mg PO DAILY #90 tabs 07/11/22 10/25/22 Rx cholecalciferol (vitamin D3) 25 3,000 unit PO DAILY 09/05/22 10/25/22 History mcg (1,000 unit) capsule bupropion HCl 150 mg 24 hr tablet, 150 mg PO QAM 10/25/22 10/25/22 History extended release (Wellbutrin XL) Past Med/Surg History Medical History Chronic cerebral ischemia Degenerative disc disease Diverticulosis of colon Hemorrhoid Metaplasia of esophagus Orthostatic hypotension Osteoarthritis Overactive bladder Pulmonary nodules Smokeless tobacco use Solitary thyroid nodule VBI (vertebrobasilar insufficiency) Surgical History H/O vasectomy History of knee replacement Right History of tooth extraction Family History Mother Family history of diabetes mellitus Breast cancer Grandmother (Paternal) Myocardial infarction Denies family history of Ovarian cancer Prostate cancer Colorectal cancer Social History Smoking Status: Never smoker Tobacco Type: Smokeless Tobacco (Dip or Chew) Cigarettes Per Day: CHEWS ON A CIGAR EVERY ONCE IN A WHILE; Second Hand Exposure: No; Do You Dip or Chew Tobacco: Yes; Hx Alcohol Use: No Hx Substance Use: No Preferred Language: Azeri Communication Ability: Effective Visual Impairment: Limited Hearing Ability: Normal Member Of Congress Required: No Beliefs That Will Affect Care: None marital status: Current Living Situation: Spouse current occupational status: retired How many Children do You have: 1 Feels Safe at Home: Yes Childhood Exposure to Second-Hand Smoke: Yes Diet: diabetic caffeine: Yes during the past year weight has: remained stable Dental Care, Regularly: No Physical Activity Frequency: 1-2 Times per Week Seatbelt Use: always Sunscreen Use: No Do you think of yourself as: straight/heterosexual Gender Identity: Male Assistive Devices: Cane, Denture - Upper, Denture - Lower and Glasses Physical Exam Physical Exam: Physical Exam: General: In no acute distress, stated age, chronically ill-appearing but non- toxic HEENT: Normocephalic, atraumatic, no scleral icterus, pupils around round, symmetrical, and reactive to light, dry mucus membranes, trachea midline, no thyromegaly Chest/Pulm: No respiratory distress, symmetrical chest expansion, expiratory wheezing noted throughout Cardiac: RRR, no murmurs noted Abdomen: Negative for ascites and bruising, normoactive bowel sounds, soft, non-tender to palpation throughout Musculoskeletal: Symmetrical and without signs of acute trauma, upper and lo wer extremities with full ROM, no atrophy, spasticity, or flaccidity Extremities: Radial, dorsalis pedis, and posterior tibial pulses are intact and symmetrical, no edema noted in the BL LE's Skin: Warm, dry, no rashes , lesions, or scars noted Neuro: Alert and oriented to person only (baseline is fluctuating mentation), CN II-XII tested and intact, no tremors noted Psych: No acute distress, calm and cooperative during the exam Results & Data Results & Data Vital Signs (Past 12 Hours) Vital Signs Temp Pulse Pulse Resp BP BP Pulse Ox 10/25/22 16:45 112 H 20 120/84 10/25/22 14:53 112 H 20 120/84 91 10/25/22 15:53 10/25/22 15:00 114 H 10/25/22 14:52 37.4 C 117 H 20 137/94 91 O2 Del Method 10/25/22 16:45 Room Air 10/25/22 14:53 Room Air 10/25/22 15:53 Room Air 10/25/22 15:00 10/25/22 14:52 Room Air Laboratory Results Abnormal lab results 10/25/22 10/25/22 10/25/22 Range/Units 14:53 14:53 16:14 Lymph # (Auto) 1.12 L (1.2-3.4) K/uL [place] # (Auto) 1.08 H (0.11-0.59) K/uL Anion Gap 12 H (3-11) Glucose 160 H (70-99(Fasting)) mg/dl Lactate 5.3 H* (0.4-2.0) mmol/L ALT 54 H (7-52) U/L Urine Ketones (Negative) 10/25/22 Range/Units 17:42 Lymph # (Auto) (1.2-3.4) K/uL [place] # (Auto) (0.11-0.59) K/uL Anion Gap (3-11) Glucose (70-99(Fasting)) mg/dl Lactate (0.4-2.0) mmol/L ALT (7-52) U/L Urine Ketones 1+ H (Negative) Diagnostic Findings Chest X-Ray 10/25/22 15:28 XR chest 1V portable HISTORY: weakness COMPARISON: Chest CT 10/30/2017. FINDINGS: There are low lung volumes. No pneumothorax. No pleural effusions. No focal lung consolidations to suggest a pneumonia. No evidence for pulmonary edema. The heart is normal in size. IMPRESSION: No acute process. ACT 112: Negative or not required by law. Electronically signed by: Jonnie Berman M.D. 10/25/2022 4:[address] 10/25/22 15:[address] DOSE: 962.98 mGy.cm HISTORY: Increasing weakness and confusion TECHNIQUE: Multiaxial CT images of the head were performed without the use of intravenous contrast. Automated exposure control was utilized for this study. A dose lowering technique was utilized adhering to the principles of ALARA. Comparison: Brain MRI 04/07/2019. Findings: The paranasal sinuses and mastoid air cells are clear. The calvarium and skull base are intact. There is no mass, hematoma, midline shift, acute infarct. White matter hypodensity is nonspecific but suggestive of moderate microvascular ischemic change. The ventricles and sulci demonstrate moderate age-related involutional changes. Impression: No acute intracranial abnormality. Atrophy and microvascular ischemic changes. ACT 112: Negative or not required by law. Electronically signed by: Jonnie Berman M.D. 10/25/2022 4:16 PM ECG Additional Comments: Sinus tachycardia Left anterior fascicular block Abnormal ECG When compared with ECG of 10-NOV-2011 13:27, Vent. rate has increased BY 55 BPM Left anterior fascicular block is now Present Code Status & VTE Plan Code Status Full code VTE Prophylaxis Plan VTE Prophylaxis will be ordered: Yes Supervising Physician Co-Signing Physician Notes Patient seen and examined, chart reviewed, case discussed with Wilson Ryan PA-C and I agree with the assessment and plan as above except as otherwise noted Labs and images reviewed 77-year-old male w hx of DM 2, parkinsonism, dementia who presented with upper respiratory symptoms and acute on chronic weakness with elevated lactate. He does not have an MO, is clinically volume contracted. Leukopenic without transaminitis. Afebrile. CT of the head is normal, CXR is without acute process. Suspect viral URI, bio fire is pending. Given worsened ambulatory status and elevated lactate patient recommended for admission. Lactate repeat is pending, CK is pending. At bedside patient is nondistressed and eating. Lungs are clear. Limbs are warm and well-perfused. Cap refill is less than 2 seconds in the hallux bilaterally. Chest rise is symmetrical, heart rate is regular. Suspect acute weakness and volume depletion in the setting of likely viral URI. Agree with assessment and management above. Patient is with very significant acute on chronic weakness globally, PT/OT pending. CM consulted PG Care Time/CCT Total # of Minutes Spent Total Time Spent with Patient: Total time spent is greater than 50% in coordination of care (as documented) at patient's floor/unit and/or counseling patient: [place] [address] INT INP/OBS CARE 3/75MIN Patient Type Established Medical Decision Making High Complexity Diagnoses Weakness R53.1 Fall W19.XXXA Encounter type: initial encounter Elevated lactic acid level R79.89 Depression F32.A Dementia F03.90 RAZ (obstructive sleep apnea) G47.33 Hyperlipidemia E78.5 Diabetes mellitus, type 2 E11.9 Diabetes mellitus complication status: without complication Diabetes mellitus skilled nursing insulin use: without adjunct faculty for medical terminology use Alvarado's esophagus K22.70 Hypertension I10 (2) Fall Encounter type: initial encounter Qualified Code(s): W19.XXXA - Unspecified fall, initial encounter (8) Diabetes mellitus, type 2 Diabetes mellitus complication status: without complication Diabetes mellitus skilled nursing insulin use: without adjunct faculty for medical terminology use Qualified Code(s): E11.9 - Type 2 diabetes mellitus without complications
[2022-10-25 17:58] LABS: Appearance Urine Clear (Clear); Bilirubin Urine Negative (Negative); Blood Urine Negative (Negative); Color Urine Yellow; Glucose Urine UA Negative (Negative); Ketones Urine 1+ (Negative); Leukocyte Esterase Urine Negative (Negative); Nitrite Urine Negative (Negative); Protein Urine Negative (Negative); Specific Gravity Urine 1.019 (1.000-1.030); Urobilinogen Urine Negative (Negative); pH Urine 5.5 (4.5-7.5)
[2022-10-25] MEDS ORDERED: PLASMA-LYTE A 1,000 ML IV ONE (18:03)
[2022-10-25] MEDS ORDERED: CARBOHYDRATES FOR HYPOGLYCEMIA PO PRN (18:09)
[2022-10-25] MEDS ORDERED: GLUCOSE 40% GEL 15 GM TUBE PO PRN (18:09)
[2022-10-25] MEDS ORDERED: DEXTROSE 50% 50 ML SYRINGE IV PRN (18:09)
[2022-10-25] MEDS ORDERED: GLUCOSE 10 TAB/TUBE PO PRN (18:09)
[2022-10-25] MEDS ORDERED: GLUCAGON FOR INJ 1 MG VIAL SQ PRN (18:09)
[2022-10-25] MEDS ORDERED: ALBUT/IPRATROP 3MG/0.5MG NEB 3 ML VIAL NEB STA (18:10)
[2022-10-25] MEDS ORDERED: ACETAMINOPHEN 325 MG TAB PO STA (20:34)
[2022-10-25 21:02] LABS: Adenovirus PCR Not Detected (NotDetected); Bordetella parapertussis PCR Not Detected (NotDetected); Bordetella pertussis PCR Not Detected (NotDetected); Chlamydia pneumoniae PCR Not Detected (NotDetected); Coronavirus 229E PCR Not Detected (NotDetected); Coronavirus CoV-2 (COVID19)PCR Not Detected (NotDetected); Coronavirus HKU1 PCR Not Detected (NotDetected); Coronavirus NL63 PCR Not Detected (NotDetected); Coronavirus OC43PCR Not Detected (NotDetected); Human Metapneumovirus PCR Not Detected (NotDetected); Influenza A PCR Not Detected (NotDetected); Influenza B PCR Not Detected (NotDetected); Mycoplasma pneumoniae PCR Not Detected (NotDetected); Parainfluenza Virus 1 PCR Not Detected (NotDetected); Parainfluenza Virus 2 PCR Not Detected (NotDetected); Parainfluenza Virus 4 PCR Not Detected (NotDetected); Respiratory Syncytial VirusPCR Not Detected (NotDetected); Rhinovirus/Enterovirus PCR Not Detected (NotDetected)
[2022-10-25 21:11] LABS: Parainfluenza Virus 3 PCR DETECTED (NotDetected)
[2022-10-25] MEDS: INSULIN ASPART PER UNIT CHARGE SC SCH (22:58)
[2022-10-25] MEDS: LANTUS PER UNIT CHARGE SQ SCH (22:58)
[2022-10-25] MEDS: ENOXAPARIN INJ 40 MG/0.4 ML SYR SQ SCH (23:03)
[2022-10-25] MEDS: MEMANTINE HCL 10 MG TAB PO SCH (23:04)
[2022-10-25] MEDS: PLASMA-LYTE A 1,000 ML IV SCH (23:52)
[2022-10-25] MEDS: guaiFENesin 600 MG TABCR PO SCH (23:52)
[2022-10-26] MEDS ORDERED: ACETAMINOPHEN 325 MG TAB PO PRN (02:30)
--- NOTE | 2022-10-26 07:08 | Electrocardiogram Report ---
Test Reason : Blood Pressure : / mmHG Vent. Rate : 116 BPM Atrial Rate : 116 BPM P-R Int : 132 ms QRS Dur : 098 ms QT Int : 338 ms P-R-T Axes : 015 -47 089 degrees QTc Int : 469 ms Sinus tachycardia Left anterior fascicular block Abnormal ECG When compared with ECG of 10-NOV-2011 13:27, Vent. rate has increased BY 55 BPM Left anterior fascicular block is now Present Confirmed by Bill Bear ([id number]) on 10/26/2022 7:07:30 AM Referred By: REFERRED SELF Confirmed By:Edy Bear
[2022-10-26] MEDS: LANTUS PER UNIT CHARGE SQ SCH ×2 (08:15→23:15)
[2022-10-26] MEDS: INSULIN ASPART PER UNIT CHARGE SC SCH ×4 (08:16→23:15)
[2022-10-26] MEDS: MEMANTINE HCL 10 MG TAB PO SCH ×2 (08:17→22:56)
[2022-10-26] MEDS: guaiFENesin 600 MG TABCR PO SCH ×2 (08:17→22:56)
[2022-10-26] MEDS: MAGNESIUM OXIDE 400 MG TAB PO SCH (08:17)
[2022-10-26] MEDS: PANTOprazole 40 MG TAB PO SCH (08:17)
[2022-10-26] MEDS: DONEPEZIL HCL 10 MG TAB PO SCH (08:17)
[2022-10-26] MEDS: ASPIRIN 81 MG ECTAB PO SCH (08:17)
[2022-10-26] MEDS: buPROPion XL 150 MG TABCR PO SCH (08:17)
[2022-10-26 08:19] LABS: Basophils # (auto) 0.05 K/uL (0-0.2); Basophils % (auto) 0.5 %; Eosinophils # (auto) 0.02 K/uL (0-0.50); Eosinophils % (auto) 0.2 %; Hematocrit (blood only) 37.5 % (42.0-52.0); Hemoglobin 12.9 g/dl (14.0-18.0); Immature Granulocytes # (auto) 0.06 K/uL (0.01-0.20); Immature Granulocytes % (auto) 0.6 %; Lymphocytes # (auto) 1.54 K/uL (1.2-3.4); Lymphocytes % (auto) 16.3 %; Mean Corpuscular Hemoglobin 29.3 pg (25.0-34.0); Mean Corpuscular Hgb Conc 34.4 g/dL (32.0-36.0); Mean Corpuscular Volume 85.2 fL (80.0-100.0); Mean Platelet Volume 10.4 fL (9.4-12.4); Monocytes # (auto) 1.31 K/uL (0.11-0.59); Monocytes % (auto) 13.9 %; Neutrophils # (auto) 6.46 K/uL (1.40-6.50); Neutrophils % (auto) 68.5 %; Platelet Count 175 K/uL (130-400); RDW Coefficient of Variation 13.9 % (11.5-14.5); White Blood Count 9.44 K/ul (4.8-10.8)
[2022-10-26 08:35] LABS: Albumin Globulin Ratio 1.1 (0.9-2); Albumin Level 3.3 gm/dl (3.4-5.0); BUN Creatinine Ratio 17.4 (10-20); Bilirubin,Total 0.4 mg/dl (0.2-1.0); Calcium 8.3 mg/dl (8.6-10.3); Creatinine Clr Calc Pharmacy 82.2 ml/min; Est GFR (African American) 92.7 ml/min; Est GFR (Non-African American) 79.9 ml/min; Globulin 2.9 gm/dl (2.5-4.0); Magnesium 1.6 mg/dl (1.7-2.4); Potassium 4.1 mmol/L (3.5-5.1); Total Protein 6.2 gm/dl (6.0-8.3)
[2022-10-26] MEDS: PLASMA-LYTE A 1,000 ML IV SCH (10:07)
--- NOTE | 2022-10-26 13:33 | Hospitalist Progress Note ---
Date of Service October 26, 2022 Assessment & Plan (1) Weakness: Plan: Generalized. Due to viral illness. Supportive care. OT and PT assessments requested. (2) Fall: Plan: Mechanical. Supportive care. OT and PT assessments requested (3) Elevated lactic acid level: Plan: No sepsis on admission. Probably related to acute viral illness. We will follow (4) Depression: Plan: Stable. Continue wellbutrin (5) Dementia: Plan: Stable. Continue memantine and donepezil (6) RAZ (obstructive sleep apnea): Plan: Stable. He does not comply with CPAP usage (7) Hyperlipidemia: Plan: Stable. Statin temporarily on hold (8) Diabetes mellitus, type 2: Plan: Usual oral medications are on hold. Low-dose Lantus basal insulin therapy for now. Sliding scale coverage as needed. ADA diet. (9) Hollis's esophagus: Plan: Stable. Continue pantoprazole (10) Hypertension: Plan: Stable off antihypertensives. Continue to monitor Plan To be determined. OT and PT assessments requested. Admission and Anticipated Discharge Date Admission Date: October 25, 2022 Subjective Alert and oriented. No distress. Generalized weakness from acute viral syndrome. Parainfluenza has been isolated. OT and PT were assessments requested. IV rate has been tapered down. Insulin replace his usual oral medications while hospitalized Review of Systems Review of Systems: Constitutional-no fever or chills ENT-no blurred vision, no double vision, no epistaxis, no sore throat Respiratory-no cough, no wheezing, no shortness of breath Cardiac-no palpitations, no chest pain, no syncope GI-no nausea, vomiting, diarrhea, melena, hematochezia -no urinary retention, no urinary incontinence, no dysuria, no hematuria Musculoskeletal-no joint pain, no muscle tenderness Skin-no bruising, no rashes, no pruritus Neuro-generalized weakness. No focal deficits Psych-no depression, no anxiety Physical Exam Physical Exam: General-alert and oriented x3, no fevers, no chills HEENT-head atraumatic and normocephalic, pupils equal and reactive to light, extraocular muscles intact Neck-no lymphadenopathy or thyromegaly, trachea midline Chest-clear to auscultation percussion. No rales wheezing or rhonchi Cardiac-regular rate and rhythm, normal S1 and S2 Abdomen-normal bowel sounds, nontender, no hepatosplenomegaly Extremities-no cyanosis, clubbing, or edema Neuro-cranial nerves II through XII intact, motor and sensory function within normal limits, strength symmetrical with generalized weakness , no focal def icits Psych-normal affect, normal mood Results & Data Results & Data Vital Signs (Past 12 Hours) Vital Signs Temp Pulse Pulse Resp BP Pulse Ox O2 Del Method 10/26/22 11:49 36.8 C 94 H 16 130/80 96 Nasal Cannula 10/26/22 07:00 107 H 10/26/22 10:03 37.8 C H 10/26/22 08:11 37.5 C 107 H 16 159/105 H 93 Nasal Cannula 10/26/22 06:00 94 Nasal Cannula 10/26/22 05:28 92 Nasal Cannula 10/26/22 05:15 109 H 16 87 L Nasal Cannula 10/26/22 02:31 37.2 C 114 H 18 134/79 90 Nasal Cannula O2 Flow Rate 10/26/22 11:49 4 10/26/22 07:00 10/26/22 10:03 10/26/22 08:11 4 10/26/22 06:00 4 10/26/22 05:28 4 10/26/22 05:15 2 10/26/22 02:31 2 Laboratory Results 10/26/22 07:18 10/26/22 07:18 PG Care Time/CCT Total # of Minutes Spent Total Time Spent with Patient: Total time spent is greater than 50% in coordination of care (as documented) at patient's floor/unit and/or counseling patient: Coding Level of Care Code 66431 SUB INP/OBS CARE 3/50MIN Diagnoses Weakness R53.1 Fall W19.XXXA Encounter type: initial encounter Elevated lactic acid level R79.89 Depression F32.A Dementia F03.90 RAZ (obstructive sleep apnea) G47.33 Hyperlipidemia E78.5 Diabetes mellitus, type 2 E11.9 Diabetes mellitus complication status: without complication Diabetes mellitus assistant terminal manager insulin use: without assistant terminal manager use Hollis's esophagus K22.70 Hypertension I10 (2) Fall Encounter type: initial encounter Qualified Code(s): W19.XXXA - Unspecified fall, initial encounter (8) Diabetes mellitus, type 2 Diabetes mellitus complication status: without complication Diabetes mellitus assistant terminal manager insulin use: without assistant terminal manager use Qualified Code(s): E11.9 - Type 2 diabetes mellitus without complications
[2022-10-26] MEDS: ALBUT/IPRATROP 3MG/0.5MG NEB 3 ML VIAL NEB SCH ×2 (15:01→19:24)
[2022-10-26] MEDS: ENOXAPARIN INJ 40 MG/0.4 ML SYR SQ SCH (23:16)
[2022-10-27 06:50] LABS: Basophils # (auto) 0.05 K/uL (0-0.2); Basophils % (auto) 0.7 %; Eosinophils # (auto) 0.21 K/uL (0-0.50); Eosinophils % (auto) 2.7 %; Hematocrit (blood only) 37.8 % (42.0-52.0); Hemoglobin 12.7 g/dl (14.0-18.0); Immature Granulocytes # (auto) 0.04 K/uL (0.01-0.20); Immature Granulocytes % (auto) 0.5 %; Lymphocytes # (auto) 1.63 K/uL (1.2-3.4); Lymphocytes % (auto) 21.3 %; Mean Corpuscular Hemoglobin 29.1 pg (25.0-34.0); Mean Corpuscular Hgb Conc 33.6 g/dL (32.0-36.0); Mean Corpuscular Volume 86.5 fL (80.0-100.0); Mean Platelet Volume 10.1 fL (9.4-12.4); Neutrophils # (auto) 4.74 K/uL (1.40-6.50); Neutrophils % (auto) 61.8 %; Platelet Count 159 K/uL (130-400); RDW Standard Deviation 44.1 fL (36.4-46.3); Red Blood Count 4.37 M/uL (4.70-6.10); White Blood Count 7.67 K/ul (4.8-10.8)
[2022-10-27] MEDS: ALBUT/IPRATROP 3MG/0.5MG NEB 3 ML VIAL NEB SCH ×4 (07:00→19:49)
[2022-10-27 07:12] LABS: BUN Creatinine Ratio 15.8 (10-20); Calcium 8.5 mg/dl (8.6-10.3); Creatinine Clr Calc Pharmacy 97.7 ml/min
[2022-10-27] MEDS: INSULIN ASPART PER UNIT CHARGE SC SCH ×4 (08:48→20:17)
[2022-10-27] MEDS: DONEPEZIL HCL 10 MG TAB PO SCH (09:21)
[2022-10-27] MEDS: ASPIRIN 81 MG ECTAB PO SCH (09:21)
[2022-10-27] MEDS: MAGNESIUM OXIDE 400 MG TAB PO SCH (09:21)
[2022-10-27] MEDS: MEMANTINE HCL 10 MG TAB PO SCH ×2 (09:21→20:17)
[2022-10-27] MEDS: guaiFENesin 600 MG TABCR PO SCH ×2 (09:22→20:17)
[2022-10-27] MEDS: PANTOprazole 40 MG TAB PO SCH (09:22)
[2022-10-27] MEDS: buPROPion XL 150 MG TABCR PO SCH (09:22)
[2022-10-27] MEDS: LANTUS PER UNIT CHARGE SQ SCH ×2 (09:26→20:18)
--- NOTE | 2022-10-27 11:32 | Electrocardiogram Report ---
Test Reason : Blood Pressure : / mmHG Vent. Rate : 111 BPM Atrial Rate : 111 BPM P-R Int : 134 ms QRS Dur : 096 ms QT Int : 350 ms P-R-T Axes : 024 -42 085 degrees QTc Int : 476 ms Poor data quality, interpretation may be adversely affected Sinus tachycardia Left axis deviation Abnormal ECG When compared with ECG of 25-OCT-2022 14:49, No significant change was found Confirmed by Alexandro Carrillo ([id number]) on 10/27/2022 11:32:19 AM Referred By: REFERRED SELF Confirmed By:Alexandro Carrillo
--- NOTE | 2022-10-27 16:51 | Hospitalist Progress Note ---
Date of Service October 27, 2022 Assessment & Plan (1) Weakness: Plan: Generalized. Due to viral illness. Supportive care. OT and PT assessments requested. Awaiting placement. (2) Fall: Plan: Mechanical. Supportive care. OT and PT assessments requested (3) Elevated lactic acid level: Plan: No sepsis on admission. Probably related to acute viral illness. (4) Depression: Plan: Stable. Continue wellbutrin (5) Dementia: Plan: Stable. Continue memantine and donepezil (6) RAZ (obstructive sleep apnea): Plan: Stable. He does not comply with CPAP usage (7) Hyperlipidemia: Plan: Stable. Statin temporarily on hold (8) Diabetes mellitus, type 2: Plan: Usual oral medications are on hold. Low-dose Lantus basal insulin therapy for now. Sliding scale coverage as needed. ADA diet. (9) Hollis's esophagus: Plan: Stable. Continue pantoprazole (10) Hypertension: Plan: Stable off antihypertensives. Continue to monitor Plan Awaiting placement. Admission and Anticipated Discharge Date Admission Date: October 25, 2022 Subjective Patient feels well overall. Denies chest pain or shortness of breath. Still feeling weak in general. Review of Systems Review of Systems: All systems reviewed & are unremarkable except as noted in Subjective Physical Exam Physical Exam: General: Awake, conversant Heart: S1, S2/regular rate and rhythm, no murmur rubs or gallops Lungs: Clear to auscultation bilaterally. Normal effort Abdomen: Soft/nontender/nondistended. No hepatosplenomegaly Extremities: No clubbing/cyanosis. No edema Behavior: Appropriate, cooperative Results & Data Results & Data Vital Signs (Past 12 Hours) Vital Signs Temp Pulse Resp BP Pulse Ox O2 Del Method O2 Flow Rate 10/27/22 15:28 93 H 18 90 Room Air 10/27/22 11:51 36.6 C 103 H 19 160/96 H 93 Room Air 10/27/22 11:14 95 H 16 93 Room Air 10/27/22 08:06 36.8 C 73 19 152/91 H 93 Nasal Cannula 2 10/27/22 07:02 86 16 97 Nasal Cannula 3 Laboratory Results Abnormal lab results 10/26/22 10/26/22 10/27/22 Range/Units 20:04 20:04 05:39 RBC 4.37 L (4.70-6.10) M/uL Hgb 12.7 L (14.0-18.0) g/dl Hct 37.8 L (42.0-52.0) % [place] # (Auto) 1.00 H (0.11-0.59) K/uL Glucose (70-99(Fasting)) mg/dl POC Glucose 167 H 167 H (70-99) mg/dl Calcium (8.6-10.3) mg/dl 10/27/22 10/27/22 10/27/22 Range/Units 05:39 07:32 11:40 RBC (4.70-6.10) M/uL Hgb (14.0-18.0) g/dl Hct (42.0-52.0) % [place] # (Auto) (0.11-0.59) K/uL Glucose 164 H (70-99(Fasting)) mg/dl POC Glucose 159 H 207 H (70-99) mg/dl Calcium 8.5 L (8.6-10.3) mg/dl 10/27/22 Range/Units 16:42 RBC (4.70-6.10) M/uL Hgb (14.0-18.0) g/dl Hct (42.0-52.0) % [place] # (Auto) (0.11-0.59) K/uL Glucose (70-99(Fasting)) mg/dl POC Glucose 173 H (70-99) mg/dl Calcium (8.6-10.3) mg/dl PG Care Time/CCT Total # of Minutes Spent Total Time Spent with Patient: Total time spent is greater than 50% in coordination of care (as documented) at patient's floor/unit and/or counseling patient: Coding Level of Care Code 74555 SUB INP/OBS CARE 235MIN Diagnoses Weakness R53.1 Fall W19.XXXA Encounter type: initial encounter Elevated lactic acid level R79.89 Depression F32.A Dementia F03.90 RAZ (obstructive sleep apnea) G47.33 Hyperlipidemia E78.5 Diabetes mellitus, type 2 E11.9 Diabetes mellitus complication status: without complication Diabetes mellitus extermination supervisor insulin use: without half-way use Hollis's esophagus K22.70 Hypertension I10 (2) Fall Encounter type: initial encounter Qualified Code(s): W19.XXXA - Unspecified fall, initial encounter (8) Diabetes mellitus, type 2 Diabetes mellitus complication status: without complication Diabetes mellitus extermination supervisor insulin use: without half-way use Qualified Code(s): E11.9 - Type 2 diabetes mellitus without complications
[2022-10-27] MEDS: ENOXAPARIN INJ 40 MG/0.4 ML SYR SQ SCH (20:18)
[2022-10-28 06:49] LABS: Basophils # (auto) 0.03 K/uL (0-0.2); Basophils % (auto) 0.5 %; Eosinophils # (auto) 0.19 K/uL (0-0.50); Eosinophils % (auto) 3.4 %; Hemoglobin 12.8 g/dl (14.0-18.0); Immature Granulocytes # (auto) 0.02 K/uL (0.01-0.20); Immature Granulocytes % (auto) 0.4 %; Lymphocytes # (auto) 1.54 K/uL (1.2-3.4); Lymphocytes % (auto) 27.7 %; Mean Corpuscular Hemoglobin 28.4 pg (25.0-34.0); Mean Corpuscular Hgb Conc 32.8 g/dL (32.0-36.0); Mean Corpuscular Volume 86.5 fL (80.0-100.0); Mean Platelet Volume 10.1 fL (9.4-12.4); Monocytes # (auto) 0.62 K/uL (0.11-0.59); Monocytes % (auto) 11.2 %; Neutrophils # (auto) 3.16 K/uL (1.40-6.50); Neutrophils % (auto) 56.8 %; Platelet Count 163 K/uL (130-400); RDW Coefficient of Variation 13.3 % (11.5-14.5); RDW Standard Deviation 42.2 fL (36.4-46.3); Red Blood Count 4.51 M/uL (4.70-6.10); White Blood Count 5.56 K/ul (4.8-10.8)
[2022-10-28 07:17] LABS: BUN Creatinine Ratio 15.9 (10-20); Calcium 8.8 mg/dl (8.6-10.3); Creatinine Clr Calc Pharmacy 109.7 ml/min; Est GFR (African American) 106.1 ml/min; Est GFR (Non-African American) 91.6 ml/min; Potassium 3.5 mmol/L (3.5-5.1)
[2022-10-28] MEDS: ALBUT/IPRATROP 3MG/0.5MG NEB 3 ML VIAL NEB SCH ×4 (07:17→19:26)
[2022-10-28] MEDS: ASPIRIN 81 MG ECTAB PO SCH (08:44)
[2022-10-28] MEDS: guaiFENesin 600 MG TABCR PO SCH ×2 (08:44→21:18)
[2022-10-28] MEDS: buPROPion XL 150 MG TABCR PO SCH (08:44)
[2022-10-28] MEDS: MEMANTINE HCL 10 MG TAB PO SCH ×2 (08:44→21:18)
[2022-10-28] MEDS: MAGNESIUM OXIDE 400 MG TAB PO SCH (08:45)
[2022-10-28] MEDS: PANTOprazole 40 MG TAB PO SCH (08:45)
[2022-10-28] MEDS: INSULIN ASPART PER UNIT CHARGE SC SCH ×4 (09:01→21:17)
[2022-10-28] MEDS: DONEPEZIL HCL 10 MG TAB PO SCH (09:01)
[2022-10-28] MEDS: LANTUS PER UNIT CHARGE SQ SCH ×2 (10:48→21:17)
--- NOTE | 2022-10-28 16:46 | Hospitalist Progress Note ---
Date of Service October 28, 2022 Assessment & Plan (1) Weakness: Plan: Generalized. Due to viral illness. Supportive care. OT and PT assessments requested. Awaiting placement. (2) Fall: Plan: Mechanical. Supportive care. OT and PT assessments requested (3) Elevated lactic acid level: Plan: No sepsis on admission. Probably related to acute viral illness. (4) Depression: Plan: Stable. Continue wellbutrin (5) Dementia: Plan: Stable. Continue memantine and donepezil (6) RAZ (obstructive sleep apnea): Plan: Stable. He does not comply with CPAP usage (7) Hyperlipidemia: Plan: Stable. Statin temporarily on hold (8) Diabetes mellitus, type 2: Plan: Usual oral medications are on hold. Low-dose Lantus basal insulin therapy for now. Sliding scale coverage as needed. ADA diet. (9) Hollis's esophagus: Plan: Stable. Continue pantoprazole (10) Hypertension: Plan: Stable off antihypertensives. Continue to monitor Plan Awaiting placement. Admission and Anticipated Discharge Date Admission Date: October 27, 2022 Subjective Patient feels well overall. Denies chest pain or shortness of breath. Spoke to on the phone Review of Systems Review of Systems: All systems reviewed & are unremarkable except as noted in Subjective Physical Exam Physical Exam: General: Awake, conversant Heart: S1, S2/regular rate and rhythm, no murmur rubs or gallops Lungs: Clear to auscultation bilaterally. Normal effort Abdomen: Soft/nontender/nondistended. No hepatosplenomegaly Extremities: No clubbing/cyanosis. No edema Behavior: Appropriate, cooperative Results & Data Results & Data Vital Signs (Past 12 Hours) Vital Signs Temp Pulse Pulse Resp BP Pulse Ox O2 Del Method 10/28/22 16:00 96 H 10/28/22 08:00 85 10/28/22 15:37 80 20 95 Room Air 10/28/22 15:20 36.5 C 84 18 129/74 92 Room Air 10/28/22 12:15 37.1 C 74 18 136/86 98 Oxymask, Nebulizer 10/28/22 11:43 Room Air 10/28/22 11:22 83 18 96 Room Air 10/28/22 07:43 36.8 C 68 18 145/87 H 93 Room Air 10/28/22 07:17 78 18 94 Room Air O2 Flow Rate 10/28/22 16:00 10/28/22 08:00 10/28/22 15:37 10/28/22 15:20 10/28/22 12:15 8 10/28/22 11:43 10/28/22 11:22 10/28/22 07:43 10/28/22 07:17 Laboratory Results Abnormal lab results 10/27/22 10/28/22 10/28/22 Range/Units 20:12 05:42 05:42 RBC 4.51 L (4.70-6.10) M/uL Hgb 12.8 L (14.0-18.0) g/dl Hct 39.0 L (42.0-52.0) % [place] # (Auto) 0.62 H (0.11-0.59) K/uL Glucose 165 H (70-99(Fasting)) mg/dl POC Glucose 226 H (70-99) mg/dl 10/28/22 10/28/22 10/28/22 Range/Units 07:45 11:33 16:23 RBC (4.70-6.10) M/uL Hgb (14.0-18.0) g/dl Hct (42.0-52.0) % [place] # (Auto) (0.11-0.59) K/uL Glucose (70-99(Fasting)) mg/dl POC Glucose 185 H 200 H 157 H (70-99) mg/dl PG Care Time/CCT Total # of Minutes Spent Total Time Spent with Patient: Total time spent is greater than 50% in coordination of care (as documented) at patient's floor/unit and/or counseling patient: Coding Level of Care Code 14844 SUB INP/OBS CARE 2/35MIN Diagnoses Weakness R53.1 Fall W19.XXXA Encounter type: initial encounter Elevated lactic acid level R79.89 Depression F32.A Dementia F03.90 RAZ (obstructive sleep apnea) G47.33 Hyperlipidemia E78.5 Diabetes mellitus, type 2 E11.9 Diabetes mellitus complication status: without complication Diabetes mellitus retirement insulin use: without retirement use Hollis's esophagus K22.70 Hypertension I10 (2) Fall Encounter type: initial encounter Qualified Code(s): W19.XXXA - Unspecified fall, initial encounter (8) Diabetes mellitus, type 2 Diabetes mellitus complication status: without complication 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
[2022-10-28] MEDS: ENOXAPARIN INJ 40 MG/0.4 ML SYR SQ SCH (21:18)
[2022-10-29] MEDS: ALBUT/IPRATROP 3MG/0.5MG NEB 3 ML VIAL NEB SCH (07:25)
[2022-10-29 07:47] LABS: BUN Creatinine Ratio 15.5 (10-20); Calcium 8.8 mg/dl (8.6-10.3); Creatinine Clr Calc Pharmacy 90.1 ml/min; Est GFR (African American) 97.9 ml/min; Est GFR (Non-African American) 84.5 ml/min; Potassium 3.7 mmol/L (3.5-5.1)
[2022-10-29] MEDS: INSULIN ASPART PER UNIT CHARGE SC SCH ×4 (09:02→20:31)
[2022-10-29] MEDS: guaiFENesin 600 MG TABCR PO SCH ×2 (09:02→20:32)
[2022-10-29] MEDS: MEMANTINE HCL 10 MG TAB PO SCH ×2 (09:03→20:33)
[2022-10-29] MEDS: ASPIRIN 81 MG ECTAB PO SCH (09:03)
[2022-10-29] MEDS: DONEPEZIL HCL 10 MG TAB PO SCH (09:03)
[2022-10-29] MEDS: buPROPion XL 150 MG TABCR PO SCH (09:03)
[2022-10-29] MEDS: MAGNESIUM OXIDE 400 MG TAB PO SCH (09:03)
[2022-10-29] MEDS: PANTOprazole 40 MG TAB PO SCH (09:04)
[2022-10-29] MEDS ORDERED: ALBUT/IPRATROP 3MG/0.5MG NEB 3 ML VIAL NEB PRN (10:07)
[2022-10-29] MEDS: LANTUS PER UNIT CHARGE SQ SCH ×2 (11:52→20:31)
--- NOTE | 2022-10-29 16:30 | Hospitalist Progress Note ---
Date of Service October 29, 2022 Assessment & Plan (1) Weakness: Plan: Generalized. Due to viral illness. Supportive care. OT and PT assessments requested. Awaiting placement. (2) Fall: Plan: Mechanical. Supportive care. OT and PT assessments requested (3) Elevated lactic acid level: Plan: No sepsis on admission. Probably related to acute viral illness. (4) Depression: Plan: Stable. Continue wellbutrin (5) Dementia: Plan: Stable. Continue memantine and donepezil (6) RAZ (obstructive sleep apnea): Plan: Stable. He does not comply with CPAP usage (7) Hyperlipidemia: Plan: Stable. Statin temporarily on hold (8) Diabetes mellitus, type 2: Plan: Usual oral medications are on hold. Low-dose Lantus basal insulin therapy for now. Sliding scale coverage as needed. ADA diet. (9) Hollis's esophagus: Plan: Stable. Continue pantoprazole (10) Hypertension: Plan: Stable off antihypertensives. Continue to monitor Plan Likely discharge tomorrow: residential placement versus home with health. Admission and Anticipated Discharge Date Admission Date: October 27, 2022 Subjective Patient feels well overall. Denies chest pain or shortness of breath. Review of Systems Review of Systems: All systems reviewed & are unremarkable except as noted in Subjective Physical Exam Physical Exam: General: Awake, conversant Heart: S1, S2/regular rate and rhythm, no murmur rubs or gallops Lungs: Clear to auscultation bilaterally. Normal effort Abdomen: Soft/nontender/nondistended. No hepatosplenomegaly Extremities: No clubbing/cyanosis. No edema Behavior: Appropriate, cooperative Results & Data Results & Data Vital Signs (Past 12 Hours) Vital Signs Temp Pulse Resp BP Pulse Ox O2 Del Method 10/29/22 15:33 36.7 C 75 18 150/87 H 93 Room Air 10/29/22 08:00 36.5 C 89 18 152/101 H 93 Room Air 10/29/22 07:26 81 18 95 Room Air Laboratory Results Abnormal lab results 10/28/22 10/29/22 10/29/22 Range/Units 20:09 06:54 08:00 Glucose 169 H (70-99(Fasting)) mg/dl POC Glucose 170 H 155 H (70-99) mg/dl 10/29/22 Range/Units 11:33 Glucose (70-99(Fasting)) mg/dl POC Glucose 179 H (70-99) mg/dl PG Care Time/CCT Total # of Minutes Spent Total Time Spent with Patient: Total time spent is greater than 50% in coordination of care (as documented) at patient's floor/unit and/or counseling patient: Coding Level of Care Code 69680 SUB INP/OBS CARE 2/35MIN Diagnoses Weakness R53.1 Fall W19.XXXA Encounter type: initial encounter Elevated lactic acid level R79.89 Depression F32.A Dementia F03.90 RAZ (obstructive sleep apnea) G47.33 Hyperlipidemia E78.5 Diabetes mellitus, type 2 E11.9 Diabetes mellitus complication status: without complication Diabetes mellitus group home insulin use: without group home use Hollis's esophagus K22.70 Hypertension I10 (2) Fall Encounter type: initial encounter Qualified Code(s): W19.XXXA - Unspecified fall, initial encounter (8) Diabetes mellitus, type 2 Diabetes mellitus complication status: without complication Diabetes mellitus group home insulin use: without group home use Qualified Code(s): E11.9 - Type 2 diabetes mellitus without complications
[2022-10-29] MEDS: ENOXAPARIN INJ 40 MG/0.4 ML SYR SQ SCH (20:31)
[2022-10-30] MEDS: MEMANTINE HCL 10 MG TAB PO SCH (08:47)
[2022-10-30] MEDS: PANTOprazole 40 MG TAB PO SCH (08:47)
[2022-10-30] MEDS: ASPIRIN 81 MG ECTAB PO SCH (08:47)
[2022-10-30] MEDS: buPROPion XL 150 MG TABCR PO SCH (08:47)
[2022-10-30] MEDS: MAGNESIUM OXIDE 400 MG TAB PO SCH (08:47)
[2022-10-30] MEDS: guaiFENesin 600 MG TABCR PO SCH (08:47)
[2022-10-30] MEDS: DONEPEZIL HCL 10 MG TAB PO SCH (08:47)
[2022-10-30] MEDS: INSULIN ASPART PER UNIT CHARGE SC SCH ×2 (08:56→12:27)
[2022-10-30] MEDS: LANTUS PER UNIT CHARGE SQ SCH (08:56)
--- NOTE | 2022-10-30 12:24 | Discharge Summary ---
Date of Service October 30, 2022 Admission HPI Per Admitting Provider Rodri is a 77 year old male with a PMH signficiant for Dementia, DM II, parkinsonism, RAZ, and alvarado's esophagus who presented to the [facility] ED on 10/25 via EMS for generalized weakness and a fall out of bed this am. Per the ED staff, the patient sleeps on a mattress on the floor on the first floor and his watches him on a camera from their bedroom. When she woke this am she found him on the ground next to the bed. Of note, the patient's bed/mattress in only a few inches off the ground. EMS was called who helped get him up and vitals were normal. Ems initially left but had to return as the patient was too weak to get out of the chair later in the day. In the ED he was noted to be tachycardic with HR in the 110's but otherwise stable. Labs were significant for a lymphopenia of 1.12, AG of 12 with bicarb of 25, glucose of 160, lactate of 5.3, ALT of 54. Ct of the head and CXR were negative for acute findings. Prior to admission the patient was given 1L NSS and 2gm ceftriaxone. At the time of the exam the patient was lying in bed in no acute distress with his and son/POA sitting bedside, history was obtained from the family due to the patient's mental status. They state that yesterday the patient started to develop a cough with yellow sputum and appeared a little weaker than his baseline. His was giving him BID Mucinex for his symptoms, she noticed that he was not eating as much as he normally does yesterday. Once EMS got him into the chair today he was initially doing well, but his new BL LE weakness is new for him. He has some chronic LE weakness but is typically able to walk with a walker or cane without issue. They are unsure of the time when he fell out of bed and how long her was on the ground for. They deny recent fever, chills, and he denies chest pain, SOB, abd pain, nausea, vomiting, diarrhea, dysuria, hematuria, LE swelling and other recent trauma. The patient is a full code and his Son is his POA. Admission Exam Per Admitting Provider General:In no acute distress, stated age, chronically ill-appearing but non- toxic HEENT:Normocephalic, atraumatic, no scleral icterus, pupils around round, symmetrical, and reactive to light, dry mucus membranes, trachea midline, no thyromegaly Chest/Pulm:No respiratory distress, symmetrical chest expansion, expiratory wheezing noted throughout Cardiac:RRR, no murmurs noted Abdomen:Negative for ascites and bruising, normoactive bowel sounds, soft, non-tender to palpation throughout Musculoskeletal:Symmetrical and without signs of acute trauma, upper and lower extremities with full ROM, no atrophy, spasticity, or flaccidity Extremities:Radial, dorsalis pedis, and posterior tibial pulses are intact and symmetrical, no edema noted in the BL LE's Skin:Warm, dry, no rashes , lesions, or scars noted Neuro:Alert and oriented to person only (baseline is fluctuating mentation), CN II-XII tested and intact, no tremors noted Psych:No acute distress, calm and cooperative during the exam Principal Diagnosis Viral illness (Parainfluenza infection) leading to muscle weakness and fall Discharge Exam General: Awake, conversant Heart: S1, S2/regular rate and rhythm, no murmur rubs or gallops Lungs: Clear to auscultation bilaterally. Normal effort Abdomen: Soft/nontender/nondistended. No hepatosplenomegaly Extremities: No clubbing/cyanosis. No edema Behavior: Appropriate, cooperative Discharge Data Allergies Allergy/AdvReac Type Severity Reaction Status Date / Time No Known Allergies Allergy Verified 09/05/22 11:32 Consultations 10/25/22 17:33 ED Decision to Admit Stat Ordered Studies 10/25/22 15:30 CT head/brain wo con Stat Hospital Course (1) Weakness: Generalized. Due to viral illness. Supportive care. Patient is being disc harged with outpatient PT/OT (2) Fall: Mechanical. Supportive care. Patient PT/OT (3) Elevated lactic acid level: No sepsis on admission. Probably related to acute viral illness. (4) Depression: Stable. Continue wellbutrin (5) Dementia: Stable. Continue memantine and donepezil (6) RAZ (obstructive sleep apnea): Stable. He does not comply with CPAP usage (7) Hyperlipidemia: Stable. Statin temporarily on hold (8) Diabetes mellitus, type 2: Usual oral medications are on hold. Low-dose Lantus basal insulin therapy for now. Sliding scale coverage as needed. ADA diet. Resume oral hypoglycemic agents upon discharge (9) Alvarado's esophagus: Stable. Continue pantoprazole (10) Hypertension: Stable off antihypertensives. Continue to monitor Plan Discharge today Total Time Total Time Spent Total Time Spent (In Minutes): 35 Discharge Plan Discharge Items Patient Disposition: Home - Home Health Services Reason For Visit: GENERALIZED WEKANESS, FALL Discharge Diagnosis: Viral illness (Parainfluenza infection) leading to muscle weakness and fall Activity: Resume your previous activity Non-emergency contact: Primary Care Provider Call non-emergency contact if: you have any medication questions and your symptoms worsen Follow-up/Referrals: Shanna Pena CRNP [Primary Care Provider] - 11/06/22 2:30 pm Diet: Heart Healthy Addtl Attending Provider Instructions: Advised to follow-up with PCP in 1 week Pending Studies at Discharge: No Stand-Alone Forms: My [facility] Medications and DC Order Prescriptions: Continued aspirin 81 mg tablet,delayed release (DR/EC) 81 mg PO DAILY metformin 1,000 mg tablet 1,000 mg PO BID Qty: 60 11RF magnesium oxide 400 mg magnesium tablet 400 mg PO DAILY Qty: 30 8RF memantine [Namenda] 10 mg tablet 10 mg PO BID Qty: 60 8RF atorvastatin 10 mg tablet 10 mg PO HS Qty: 90 3RF Januvia 50 mg tablet 50 mg PO DAILY Qty: 90 3RF pantoprazole 40 mg tablet,delayed release (DR/EC) See Rx Instructions .ROUTE .COMPLEX Qty: 30 4RF Dose Instruction: TAKE 1 TABLET EVERY DAY 30 MINUTES BEFORE BREAKFAST EVERY DAY Rx Instructions: TAKE 1 TABLET EVERY DAY 30 MINUTES BEFORE BREAKFAST EVERY DAY hydrocortisone [Proctosol HC] 2.5 % cream with perineal applicator 1 applic TX DAILY PRN (Reason: hemorrhoids) Qty: 30 1RF donepezil 10 mg tablet 10 mg PO DAILY Qty: 90 1RF cyanocobalamin (vitamin B-12) 1,000 mcg capsule 1,000 mcg PO DAILY cholecalciferol (vitamin D3) 25 mcg (1,000 unit) capsule 3,000 unit PO DAILY bupropion HCl [Wellbutrin XL] 150 mg tablet extended release 24 hr 150 mg PO QAM Discharge Orders: Discharge Order (Routine); Ordered 10/30/22 Ordered By: Jaylen Womack Admission Data Admit Date/Time: 10/27/22 15:55 Attending Provider: Jaylen Womack Admit Provider: Jaylen Womack Primary Care Provider: Shanna Pena Other Providers: Luis M Perry ; [place] ; [facility] ; [facility] Health ; [facility] Other Interventions: Discharge Summary Assessment (RN) Last Done: 10/30/22 13:53 Coding Level of Care Code 54303 INP/OBS DISCH >30 MIN Diagnoses Weakness R53.1 Fall W19.XXXA Encounter type: initial encounter Elevated lactic acid level R79.89 Depression F32.A Dementia F03.90 RAZ (obstructive sleep apnea) G47.33 Hyperlipidemia E78.5 Diabetes mellitus, type 2 E11.9 Diabetes mellitus complication status: without complication Diabetes mellitus senior care insulin use: without terminologist use Alvarado's esophagus K22.70 Hypertension I10
== END 2022-10-30 15:57 | disposition home or self-care (01) | DRG 866 ==
LOC: EDINP 14:42 → ED 14:42 → SUATTDRO 17:37 → 2W 20:39 → SUATTDRO 10-27 15:55
DX: G20 Parkinson's disease; F32.A Depression, unspecified; F17.220 Nicotine dependence, chewing tobacco, uncomplicated; G47.33 Obstructive sleep apnea (adult) (pediatric); E78.5 Hyperlipidemia, unspecified; I10 Essential (primary) hypertension; Z79.899 Other long term (current) drug therapy; E86.0 Dehydration; F02.80 Dementia in other diseases classified elsewhere, unspecified severity, without behavioral disturbance, psychotic disturbance, mood disturbance, and anxiety; Z79.82 Long term (current) use of aspirin; E11.9 Type 2 diabetes mellitus without complications; K22.70 Barrett's esophagus without dysplasia; W06.XXXA Fall from bed, initial encounter; Z79.84 Long term (current) use of oral hypoglycemic drugs; R53.1 Weakness; Z91.198 Patient's noncompliance with other medical treatment and regimen for other reason; B34.8 Other viral infections of unspecified site

== ENCOUNTER 2025-04-25 12:34 | Inpatient (IN) ==
[2025-04-25 15:16] LABS: Hematocrit (blood only) 35.4 % (42.0-52.0); Hemoglobin 10.9 g/dL (14.0-18.0); Immature Granulocytes # (auto) 0.08 K/uL (0.01-0.20); Immature Granulocytes % (auto) 0.6 %; Mean Corpuscular Hemoglobin 21.4 pg (25.0-34.0); Mean Corpuscular Volume 69.4 fL (80.0-100.0); RDW Standard Deviation 46.7 fL (36.4-46.3); Red Blood Count 5.10 M/uL (4.70-6.10); White Blood Count 13.25 K/ul (4.8-10.8)
[2025-04-25 15:34] LABS: Microcytosis Present; Platelet Count 297 K/uL (130-400); Polychromasia 1+
[2025-04-25 15:42] LABS: Alanine Aminotransferase 20.0 U/L (7-52); Albumin Globulin Ratio 1.0 (0.9-2); Albumin Level 4.0 gm/dl (3.4-5.0); Alkaline Phosphatase 73.0 U/L (34-104); Anion Gap 13.0 (3-11); Bilirubin,Total 0.3 mg/dl (0.2-1.0); Blood Urea Nitrogen 15.0 mg/dl (6-23); Calcium 9.2 mg/dl (8.6-10.3); Carbon Dioxide 24.0 mmol/L (21-32); Chloride 102.0 mmol/L (98-107); Creatinine Clr Calc Pharmacy 78.6 ml/min; Globulin 3.9 gm/dl (2.5-4.0); Glucose 140.0 mg/dl (70-99(Fasting)); Lipase 24.0 U/L (11-82); Potassium 4.2 mmol/L (3.5-5.1); Sodium 139.0 mmol/L (136-145); Total Protein 7.9 gm/dl (6.0-8.3)
[2025-04-25] MEDS: LACTATED RINGER'S 1,000 ML IV ONE (15:47)
[2025-04-25] MEDS: OPTIRAY 320 100ml IV ONE (15:57)
--- NOTE | 2025-04-25 16:23 | Emergency Department Note ---
History of Present Illness General Chief complaint: Fall Stated complaint: FALL, EYE INJURY Time Seen by Provider: 04/25/25 13:49 Source: family Mode of arrival: EMS History of Present Illness Maximum Pain Intensity: 5 Patient is a 79-year-old male with history of dementia, parkinsonian's, diabetic neuropathy who presents after a fall. His reports that he had walked out of the house without her knowing and had fallen down a neighbor's driveway. He did sustain a laceration to the scalp and has ecchymosis and swelling around the left eye. Patient was awake and sitting up when his got to him and denies any current complaints at this time. History is limited due to patient's underlying dementia. He is on 81 mg of aspirin but no other anticoagulation noted. Home Medications Medication Instructions Recorded Confirmed Type aspirin 81 mg tablet,delayed 81 mg PO DAILY 04/22/18 02/21/25 History release cyanocobalamin (vitamin B-12) 1,000 mcg PO DAILY 10/15/20 02/21/25 History 1,000 mcg capsule cholecalciferol (vitamin D3) 25 3,000 unit PO DAILY 09/05/22 02/21/25 History mcg (1,000 unit) capsule blood-glucose meter (OneTouch #1 ea 10/31/22 02/21/25 Rx Ultra2 Meter) walker with wheels and brakes and See Rx Instructions .Route 11/17/22 02/21/25 Rx seat .COMPLEX #1 ea magnesium oxide 400 mg PO DAILY 30 days #30 tabs 11/28/22 02/21/25 Rx potassium gluconate 595 mg (99 mg) 595 mg PO DAILY 01/19/23 02/21/25 History tablet sitagliptin phosphate 50 mg tablet 50 mg PO DAILY #90 tabs 05/04/23 07/01/24 Rx (Januvia) insulin glargine 100 unit/mL (3 15 unit (0.15 mL) subcut QPM #15 mL 04/25/24 02/21/25 Rx mL) subcutaneous pen (Lantus Solostar U-100 Insulin) pantoprazole 40 mg tablet,delayed See Rx Instructions .Route 08/15/24 02/21/25 Rx release .COMPLEX #90 tabs docusate sodium 100 mg capsule 100 mg PO DAILY 10/20/24 02/21/25 History (Colace) blood sugar diagnostic (OneTouch #200 ea 11/02/24 02/21/25 Rx Ultra Test strips) lancets 33 gauge #200 ea 11/02/24 02/21/25 Rx metformin 1,000 mg tablet 1,000 mg PO BID #60 tabs 11/11/24 02/21/25 Rx atorvastatin 10 mg tablet 10 mg PO HS #90 tabs 12/14/24 02/21/25 Rx memantine 10 mg tablet 10 mg PO BID #60 tabs 12/14/24 02/21/25 Rx bupropion HCl 150 mg 24 hr tablet, 150 mg PO .COMPLEX 90 days #90 tabs 02/13/25 02/21/25 Rx extended release (Wellbutrin XL) hydrocortisone 2.5 % topical cream 1 applic CO DAILY PRN hemorrhoids 02/13/25 02/21/25 Rx with perineal applicator #30 grams (Proctosol HC) silver sulfadiazine 1 % topical 1 applic topical BID #25 grams 02/13/25 02/21/25 Rx cream (Silvadene) donepezil 10 mg tablet 10 mg PO DAILY #90 tabs 04/10/25 Rx pen needle, diabetic, safety 30 #100 ea 04/10/25 Rx gauge x 3/16" Allergies Allergy/AdvReac Type Severity Reaction Status Date / Time No Known Allergies Allergy Verified 02/21/25 13:25 Past Med/Surg History Problem List (Updated 04/25/25 @ 16:54 by Jacob Faulkner MD) Fall (Acute) High serum lactate (Acute) Facial injury (Acute) Decubitus ulcer of sacral area Depression Hyperlipidemia Soft hoarse voice Risk for falls Muscular deconditioning Fatigue Parkinsonism Dementia Nocturnal hypoxia pt refuses nocturnal O2 Allergic rhinitis (Acute) Diabetic peripheral neuropathy (Chronic) Elevated serum globulin level (Acute) Elevated total protein (Acute) Reflux esophagitis (Acute) Orthostatic hypotension (Acute) Chronic lumbar pain (Chronic) Neurologic gait dysfunction (Chronic) Diabetes mellitus, type 2 (Chronic) Overactive bladder (Chronic) Osteoarthritis (Chronic) Degenerative disc disease (Chronic) Vertigo (Chronic) Medical History Elevated lactic acid level RAZ (obstructive sleep apnea) Metaplasia of esophagus Chronic cerebral ischemia Diverticulosis of colon Pulmonary nodules Smokeless tobacco use Solitary thyroid nodule VBI (vertebrobasilar insufficiency) Hollis's esophagus Hemorrhoid Hypertension Surgical History History of tooth extraction History of knee replacement H/O vasectomy Family History Mother Family history of diabetes mellitus Breast cancer Grandmother (Paternal) Myocardial infarction Denies family history of Ovarian cancer Prostate cancer Colorectal cancer Social History Smoking Status: Former smoker Tobacco Type: Smokeless Tobacco (Dip or Chew) Age Started Using Tobacco: 18; Age Quit Using Tobacco: 35; packs per day: 0.5; Cigarettes Per Day: CHEWS ON A CIGAR EVERY ONCE IN A WHILE; Second Hand Exposure: No; Do You Dip or Chew Tobacco: Yes; Hx Alcohol Use: No Hx Substance Use: No Preferred Language: Japanese Communication Ability: Effective Visual Impairment: Limited Hearing Ability: Normal Studio Hand Required: No Beliefs That Will Affect Care: None marital status: Current Living Situation: Spouse current occupational status: retired How many Children do You have: 1 Feels Safe at Home: Yes Childhood Exposure to Second-Hand Smoke: Yes Diet: diabetic caffeine: Yes during the past year weight has: remained stable Dental Care, Regularly: No Physical Activity Frequency: 1-2 Times per Week Seatbelt Use: always Sunscreen Use: No Do you think of yourself as: straight/heterosexual Sexual Activity: has been sexually active, but not for at least 12 months Gender Identity: Male Assistive Devices: Cane, Glasses and Walker Review of Systems Review of systems negative outside of positive findings mentioned in HPI. Physical Exam Vital Signs Vital Signs - 24 hr 04/25/25 12:53 04/25/25 13:10 04/25/25 15:00 Temperature 36.7 C Temperature Source Oral Pulse Rate 108 H 113 H 111 H Respiratory Rate 18 18 Respiratory Effort / Characteristics Non-Labored Respiratory Depth Normal Respiratory Pattern Regular Blood Pressure 129/88 Blood Pressure Mean 101 Blood Pressure Position Sitting Pulse Oximetry 94 93 Oxygen Delivery Method Room Air Room Air Sepsis Recent Fever Within 48 Hours No Sepsis New/Unexplained Change in Mental Status N/A Sepsis Action Taken by Nursing No Action Required Primary Survey Airway: Intact Breathing: Normal, breath sounds equal bilaterally Circulation: Skin warm, well perfused, capillary refill less than 2 seconds Disability Pupils: Equal and reactive to light, 4mm, brisk GCS: 15, E = 4 V=5 M= 6 Motor Function: Moves all extremities. Sensory: No deficits Secondary Survey GENERAL: NAD, non-toxic. HEAD: Normocephalic, periorbital ecchymosis on the left EYE EXAM: Normal conjunctiva. PERRL, no anisocoria and EOM's grossly intact w/o pain or signs of entrapment OROPHARYNX: Moist mucus membranes. Grossly normal dentition. NECK: Supple, trachea midline, no midline C spine TTP. Chest: TTP of the left lower ribs at the mid axillary line LUNGS: Clear to auscultation. Normal chest wall mechanics. HEART: NSR, no MRG. ABDOMEN: Abdomen soft, non-tender, no obvious bruising, normo-active bowel sounds, no masses, no rebound or guarding. BACK: No CVA TTP. No midline thoracic or lumbar TTP. SKIN: No rashes and no bruising. UPPER EXTREMITIES: Upper extremities are grossly normal. Well-perfused and compartments are soft throughout ecchymosis to the left hand with skin tear to the dorsum of the hand LOWER EXTREMITIES: Grossly normal, no edema. Well-perfused and compartments are soft throughout, large traumatic effusion to the left anterior knee joint, abrasion to the right knee NEURO EXAM: A&O x3, cranial nerves II-XII grossly intact, normal speech, moves all 4 extremities. Course Administered Medications Discontinued Medications Lactated Ringer's (Lr) 1,000 mls @ 999 mls/hr IV .Q1H1M ONE Stop: 04/25/25 16:32 Last Admin: 04/25/25 15:47 Dose: 999 mls/hr Documented By: kingsley Ioversol (Optiray 320 100ml) 90 ml IV ONCE ONE Stop: 04/25/25 15:57 Last Admin: 04/25/25 15:57 Dose: 90 ml Documented By: ROSS Medical Decision Making Differential Diagnosis DDx includes but not limited to: SDH, SAH, basilar skull fracture, cervical spine fracture, ligamentous injury, facial fracture, rib fracture, rib contusion, pulmonary contusion, pelvic fracture, knee contusion, superficial skin tear, multiple abrasions Laboratory Data 04/25/25 14:50 04/25/25 14:50 Lab Results 04/25/25 04/25/25 04/25/25 Range/Units 14:50 15:15 15:24 WBC 13.25 H (4.8-10.8) K/ul RBC 5.10 (4.70-6.10) M/uL Hgb 10.9 L (14.0-18.0) g/dL POC Hgb 10.9 L 10.9 L (14.0-18.0) g/dl Hct 35.4 L (42.0-52.0) % POC Hct 32 L 32 L (42-52) % MCV 69.4 L (80.0-100.0) fL MCH 21.4 L (25.0-34.0) pg MCHC 30.8 L (32.0-36.0) g/dL RDW Std Deviation 46.7 H (36.4-46.3) fL RDW Coeff of Adamaris 19.2 H (11.5-14.5) % Plt Count 297 (130-400) K/uL MPV 10.1 (9.4-12.4) fL Immature Gran % (Auto) 0.6 % Neut % (Auto) 83.7 % Lymph % (Auto) 8.2 % [place] % (Auto) 6.6 % Eos % (Auto) 0.5 % Baso % (Auto) 0.4 % Neut # (Auto) 11.11 H (1.40-6.50) K/uL Lymph # (Auto) 1.08 L (1.20-3.40) K/uL [place] # (Auto) 0.87 H (0.11-0.59) K/uL Eos # (Auto) 0.06 (0.00-0.50) K/uL Baso # (Auto) 0.05 (0.00-0.20) K/uL Immature Gran # (Auto) 0.08 (0.01-0.20) K/uL Polychromasia 1+ Microcytosis Present PT Cancelled INR Cancelled APTT Cancelled PTT Ratio Cancelled POC Sodium 140 140 (135-144) mmol/L Sodium 139 (136-145) mmol/L POC Potassium 4.0 4.0 (3.3-5.0) mmol/L Potassium 4.2 (3.5-5.1) mmol/L POC Chloride 102 101 (101-112) mmol/L Chloride 102 (98-107) mmol/L Carbon Dioxide 24 (21-32) mmol/L POC Total CO2 22 L 22 L (24-31) mmol/L Anion Gap 13 H (3-11) POC Anion Gap 22.0 22.0 (16-25) mmol/L POC BUN 16 16 (7-18) mg/dl BUN 15 (6-23) mg/dl Creatinine 0.94 (0.6-1.4) mg/dl POC Creatinine TNP 1.0 Est Cr Clr Drug Dosing 78.6 ml/min eGFR 82.46 BUN/Creatinine Ratio 16.0 (10-20) Glucose 140 H (70-99(Fasting)) mg/dl POC Glucose (other) 136 H 135 H (70-99) mg/dl Lactate 5.3 H* (0.4-2.0) mmol/L Calcium 9.2 (8.6-10.3) mg/dl POC Ioniz Calcium Bryanna 1.06 L 1.13 (1.12-1.32) mmol/l Total Bilirubin 0.3 (0.2-1.0) mg/dl AST 21 (13-39) U/L ALT 20 (7-52) U/L Alkaline Phosphatase 73 (34-104) U/L Troponin I High Sens 33.7 H (0-20) pg/ml Total Protein 7.9 (6.0-8.3) gm/dl Albumin 4.0 (3.4-5.0) gm/dl Globulin 3.9 (2.5-4.0) gm/dl Albumin/Globulin Ratio 1.0 (0.9-2) Lipase 24 (11-82) U/L Imaging Data Radiologist's Impression: Cervical Spine CT 04/25/25 14:12 Clinical history: Injury Technique: Axial computed tomography images were obtained of the cervical spine without intravenous contrast. Sagittal and coronal reconstructions were obtained Findings: No fracture is identified. No listhesis is seen. No focal osseous lesion is evident. There is atlantoaxial osteoarthritis. At C2-3, there is a small left paracentral disc protrusion. There is no spinal stenosis. The neural foramen are patent At C3-4, there is mild spinal stenosis due to a disc bulge and a central disc protrusion. There is mild left neural foramen narrowing At C4-5, there is mild spinal stenosis due to a disc bulge and a right paracentral disc herniation. The neural foramen are patent At C5-6, there is mild spinal stenosis due to a disc bulge and a right paracentral disc protrusion. The neural foramen are patent At C6-7, there is a disc bulge without spinal stenosis. The neural foramen are patent At C7-T1, there is a disc bulge. There is no spinal stenosis. The neural foramen are patent There is a nodule in the left thyroid lobe. No foreign body is seen Impression: 1. No definite cervical spine fracture 2. Mild spinal stenosis from C3-4 through C5-6 3. Indeterminate thyroid nodule. A follow-up thyroid ultrasound could be obtained ACT 112: Positive. There are findings on this exam that require communication between the performing entity and the patient following Patient Test Result Information Act ([place] ACT 112) guidelines. Electronically signed by Ramon Cole 04-25-2025 4:[address] 04/25/25 14:12 Technique: Axial computed tomography images were obtained of the brain without intravenous contrast. Comparison is made to the prior CT dated 10/25/2022 Findings: There is unchanged cerebral atrophy, within expected limits for the patient's age. Areas of decreased attenuation are seen within the periventricular white matter, likely representing chronic small vessel ischemic disease. There is no definite sign of acute or old infarction. No intracranial hemorrhage is evident. No definite mass lesion is seen on this noncontrast examination. There is no midline shift or other form of herniation. No hydrocephalus is seen. No fracture is identified. The orbits and the visualized paranasal sinuses appear unremarkable. The mastoid air cells appear clear. Impression: 1. Cerebral atrophy and chronic small vessel ischemic disease 2. Otherwise unremarkable noncontrast CT of the brain Electronically signed by Ramon Cole 04-25-2025 4:[address] 04/25/25 14:13 Clinical history: Trauma Technique: Axial computed tomography images were obtained of the facial bones without intravenous contrast. Sagittal and coronal reconstructions were obtained Findings: There is a suspected nondisplaced fracture of the inferior wall of the left orbit. No other fracture is identified. No focal osseous lesion is noted. There is mild frontal and ethmoid sinus mucosal thickening. The remainder of the paranasal sinuses appear clear without significant mucosal thickening, fluid, retention cyst, or mass. The ostiomeatal units appear patent bilaterally. The mastoid air cells appear clear The orbits appear unremarkable. No foreign body is seen. The nasal septum appears midline. No definite nasal polyp is noted Impression: Apparent nondisplaced fracture of the inferior wall of the left orbit Electronically signed by Ramon Cole 04-25-2025 4:40 PM MDM Narrative Patient is a 79-year-old male who presents after a fall outside down a driveway. Primary exam nonconcerning. Secondary exam notable for findings above. [place] scan CT imaging and lab work were ordered per trauma order set. Lab work shows mild leukocytosis with a lactate of 5. I do believe this elevation in lactate is more likely secondary to adrenergic reaction in the setting of trauma as there is no other evidence of septic shock or obvious source of infection however patient will be given IV fluids and repeat lactate will be assessed. If lactate is not improved after IV fluids would recommend admission for sepsis rule out. CT of the head and cervical spine nonconcerning. Remainder of the CT imaging is pending. Signed out to Dr. Salguero pending results of CT and repeat lab work. Patient did multiple x-rays that are pending radiology interpretation as well. Tetanus was updated here today. See Dr. Salguero's note for further encounter details. Impression & Plan Facial injury, High serum lactate, Fall Discharge Plan Visit Data Chief Complaint: Fall Stated Complaint: FALL, EYE INJURY ED Provider: Subhash Salguero Discharge Problem: Facial injury, High serum lactate, Fall Condition: Good Forms Stand Alone Forms: My [facility] [employer] Prescriptions Prescriptions: No Action aspirin 81 mg tablet,delayed release (DR/EC) 81 mg PO DAILY (DME) blood-glucose meter [OneTouch Ultra2 Meter] Mis See Rx Instructions .Route Qty: 1 0RF Rx Instructions: Check 1 time daily walker with wheels and brakes and seat See Rx Instructions .ROUTE .COMPLEX Qty: 1 0RF Rx Instructions: 1 each; magnesium oxide 400 mg magnesium tablet 400 mg PO DAILY 30 Days Qty: 30 8RF Januvia 50 mg tablet 50 mg PO DAILY Qty: 90 3RF Hold Instructions: not taking insulin glargine [Lantus Solostar U-100 Insulin] 100 unit/mL (3 mL) insulin pen 15 unit subcut QPM Qty: 15 5RF Rx Instructions: will hold januvia pantoprazole 40 mg tablet,delayed release (DR/EC) See Rx Instructions .ROUTE .COMPLEX Qty: 90 3RF Dose Instruction: TAKE 1 TABLET EVERY DAY 30 MINUTES BEFORE BREAKFAST EVERY DAY Rx Instructions: TAKE 1 TABLET EVERY DAY 30 MINUTES BEFORE BREAKFAST EVERY DAY (DME) OneTouch Ultra Test Strip See Rx Instructions .Route Qty: 200 3RF Rx Instructions: Check 2 times daily (DME) lancets 33 gauge misc See Rx Instructions .Route Qty: 200 3RF Rx Instructions: Check twice daily metformin 1,000 mg tablet 1,000 mg PO BID Qty: 60 11RF memantine 10 mg tablet 10 mg PO BID Qty: 60 11RF atorvastatin 10 mg tablet 10 mg PO HS Qty: 90 3RF bupropion HCl [Wellbutrin XL] 150 mg tablet extended release 24 hr 150 mg PO .COMPLEX 90 Days Qty: 90 3RF Rx Instructions: 150 mg orally EVERY MORNING; silver sulfadiazine [Silvadene] 1 % cream 1 applic topical BID Qty: 25 1RF Rx Instructions: apply a 1.5 mm thickness hydrocortisone [Proctosol HC] 2.5 % cream with perineal applicator 1 applic CO DAILY PRN (Reason: hemorrhoids) Qty: 30 4RF donepezil 10 mg tablet 10 mg PO DAILY Qty: 90 3RF (DME) pen needle, diabetic, safety 30 gauge x 3/16" needle See Rx Instructions .Route Qty: 100 3RF Rx Instructions: use daily with insulin cyanocobalamin (vitamin B-12) 1,000 mcg capsule 1,000 mcg PO DAILY cholecalciferol (vitamin D3) 25 mcg (1,000 unit) capsule 3,000 unit PO DAILY potassium gluconate 595 mg (99 mg) tablet 595 mg PO DAILY docusate sodium [Colace] 100 mg capsule 100 mg PO DAILY Referrals Referrals: Shanna Pena CRNP [Primary Care Provider] -
--- NOTE | 2025-04-25 16:39 | CT Scan Report ---
Technique: Axial computed tomography images were obtained of the brain without intravenous contrast. Comparison is made to the prior CT dated 10/25/2022 Findings: There is unchanged cerebral atrophy, within expected limits for the patient's age. Areas of decreased attenuation are seen within the periventricular white matter, likely representing chronic small vessel ischemic disease. There is no definite sign of acute or old infarction. No intracranial hemorrhage is evident. No definite mass lesion is seen on this noncontrast examination. There is no midline shift or other form of herniation. No hydrocephalus is seen. No fracture is identified. The orbits and the visualized paranasal sinuses appear unremarkable. The mastoid air cells appear clear. Impression: 1. Cerebral atrophy and chronic small vessel ischemic disease 2. Otherwise unremarkable noncontrast CT of the brain Electronically signed by Ramon Cole 04-25-2025 4:37 PM
--- NOTE | 2025-04-25 16:40 | CT Scan Report ---
Clinical history: Trauma Technique: Axial computed tomography images were obtained of the facial bones without intravenous contrast. Sagittal and coronal reconstructions were obtained Findings: There is a suspected nondisplaced fracture of the inferior wall of the left orbit. No other fracture is identified. No focal osseous lesion is noted. There is mild frontal and ethmoid sinus mucosal thickening. The remainder of the paranasal sinuses appear clear without significant mucosal thickening, fluid, retention cyst, or mass. The ostiomeatal units appear patent bilaterally. The mastoid air cells appear clear The orbits appear unremarkable. No foreign body is seen. The nasal septum appears midline. No definite nasal polyp is noted Impression: Apparent nondisplaced fracture of the inferior wall of the left orbit Electronically signed by Ramon Cole 04-25-2025 4:40 PM
--- NOTE | 2025-04-25 16:44 | CT Scan Report ---
Clinical history: Injury Technique: Axial computed tomography images were obtained of the cervical spine without intravenous contrast. Sagittal and coronal reconstructions were obtained Findings: No fracture is identified. No listhesis is seen. No focal osseous lesion is evident. There is atlantoaxial osteoarthritis. At C2-3, there is a small left paracentral disc protrusion. There is no spinal stenosis. The neural foramen are patent At C3-4, there is mild spinal stenosis due to a disc bulge and a central disc protrusion. There is mild left neural foramen narrowing At C4-5, there is mild spinal stenosis due to a disc bulge and a right paracentral disc herniation. The neural foramen are patent At C5-6, there is mild spinal stenosis due to a disc bulge and a right paracentral disc protrusion. The neural foramen are patent At C6-7, there is a disc bulge without spinal stenosis. The neural foramen are patent At C7-T1, there is a disc bulge. There is no spinal stenosis. The neural foramen are patent There is a nodule in the left thyroid lobe. No foreign body is seen Impression: 1. No definite cervical spine fracture 2. Mild spinal stenosis from C3-4 through C5-6 3. Indeterminate thyroid nodule. A follow-up thyroid ultrasound could be obtained ACT 112: Positive. There are findings on this exam that require communication between the performing entity and the patient following Patient Test Result Information Act ([place] ACT 112) guidelines. Electronically signed by Ramon Cole 04-25-2025 4:43 PM
--- NOTE | 2025-04-25 16:55 | CT Scan Report ---
Clinical history: Fall Technique: Axial computed tomography images were obtained of the chest after the administration of intravenous contrast Comparison is made to the prior CT dated 10/30/2017 Findings: There is an unchanged 8 mm nodular opacity in the right middle lobe, with unchanged adjacent centrilobular interstitial opacities. There is an unchanged 1.2 cm nodular opacity with irregular margins more inferiorly in the right middle lobe. There is bilateral lower lobe atelectasis. There is no pleural effusion or pneumothorax. There is no sign of pulmonary fibrosis or other diffuse interstitial process. No endobronchial lesion is seen There is no mediastinal, hilar, or axillary adenopathy. The thoracic aorta appears unremarkable with no sign of aneurysm or dissection. There is no pericardial effusion. There is extensive coronary atherosclerosis There is a nodule in the left thyroid lobe There is a small hiatal hernia. The spleen is mildly enlarged measuring 13.8 cm. No fracture is seen. No focal osseous lesion is evident Impression: 1. Unchanged right middle lobe nodular and interstitial opacities, benign given the long-term stability. This could be residual from a prior inflammatory process 2. Bilateral lower lobe atelectasis 3. Indeterminate thyroid nodule. A follow-up thyroid ultrasound could be obtained 4. Extensive coronary atherosclerosis 5. Small hiatal hernia 6. Mild splenomegaly ACT 112: Positive. There are findings on this exam that require communication between the performing entity and the patient following Patient Test Result Information Act ([place] ACT 112) guidelines. Electronically signed by Ramon Cole 04-25-2025 4:54 PM
--- NOTE | 2025-04-25 17:05 | CT Scan Report ---
EXAMINATION: Abdomen and pelvis CT with CLINICAL HISTORY: Fall, fell down hill, bruising left eye, head wound PRIORS: None TECHNIQUE: Contiguous axial images were obtained through the abdomen and pelvis with the use of intravenous contrast. Sagittal and coronal reformations are supplied. FINDINGS: Mild hypoventilatory changes at the lung bases. No pleural or pericardial effusion in the [id number]. No solid organ laceration or subcapsular hematoma. Liver is enlarged measuring 19 cm. The gallbladder, portal vein, spleen, stomach, adrenals, aorta and IVC are morphologically unremarkable. Pancreas is atrophic. Moderate to advanced atherosclerotic disease of the abdominal aorta extending into the bifurcation. Kidneys enhance symmetrically. Low-attenuation left renal lesion measuring 2.9 cm and fluid attenuation, most likely representing a cyst. No bowel wall hematoma, hemoperitoneum or free fluid. Severe diverticulosis of the descending and sigmoid colon. No dilated loops of bowel or pericolonic inflammatory change. No ascites, adenopathy or extraluminal gas. Lumbar spine is dictated under separate heading. Moderate osseous demineralization noted. IMPRESSION: 1. No CT evidence of an acute or traumatic abdominal abnormality. 2. Hepatomegaly. 3. Advanced diverticulosis of the descending and sigmoid colon. Electronically signed by Maria E Torres 04-25-2025 5:05 PM
--- NOTE | 2025-04-25 17:07 | CT Scan Report ---
EXAMINATION: CT thoracic spine W/O con CLINICAL HISTORY: Fall PRIORS: None TECHNIQUE: Contiguous axial images were obtained through the thoracic spine without the use of intravenous contrast. Sagittal and coronal reformations are supplied. FINDINGS: Moderate osseous demineralization is noted. Mild kyphosis present. No high-grade compression fracture of the thoracic vertebral bodies or facet dislocation. No displaced rib fracture in the [id number]-[id number]. No osteophytic neuroforaminal stenosis. Mild diffuse facet hypertrophic changes. Mild to moderate degenerative disc disease throughout the lumbar spine. Multilevel anterior bridging osteophytes of the mid to lower thoracic spine. No paravertebral hematoma. IMPRESSION: No CT evidence of an acute osseous abnormality Electronically signed by Maria E Torres 04-25-2025 5:07 PM
[2025-04-25 17:08] LABS: Appearance Urine Clear (Clear); Glucose Urine UA Negative (Negative)
--- NOTE | 2025-04-25 17:09 | CT Scan Report ---
EXAMINATION: CT lumbar spine W/O con CLINICAL HISTORY: Fall PRIORS: MR 06/16/2018 TECHNIQUE: Contiguous axial images were obtained through the lumbar spine without the use of intravenous contrast. Sagittal and coronal reformations are supplied. FINDINGS: Moderate osseous demineralization noted. Lordosis is preserved. No high-grade compression fracture. Moderate facet hypertrophic changes with no facet dislocation. Advanced facet hypertrophic changes at L5-S1. No paraspinal hematoma. Moderate to advanced atherosclerotic disease of the aorta and the [id number]. No retroperitoneal hemorrhage. IMPRESSION: No CT evidence of an acute osseous abnormality. Electronically signed by Maria E Torres 04-25-2025 5:09 PM
[2025-04-25] MEDS: DIPHTHER/TETAN/PERTUS Vaccine (Tdap, Adol/Adult) 0.5mL IM ONE (17:17)
[2025-04-25 17:20] LABS: INR 1.0 (0.9-1.1); Partial Thromboplastin Time 23 Seconds (21-31); Prothrombin Time 10.8 Seconds (9.0-12.0)
--- NOTE | 2025-04-25 17:27 | XRay Report ---
EXAMINATION: X-ray hand left minimum 3 view routine CLINICAL HISTORY: Trauma PRIORS: None TECHNIQUE: Frontal, 2 oblique views and lateral view FINDINGS: Vascular calcifications present. Mild to moderate osseous demineralization noted. Carpal bones congruous. Metacarpals and phalanges normal in morphology with no acute fracture or dislocation. Visualized distal radius and ulna within normal limits. Mild to moderate osteoarthritis of the interphalangeal joints. IMPRESSION: No plain film evidence of an acute fracture or dislocation. Electronically signed by Maria E Torres 04-25-2025 5:25 PM
--- NOTE | 2025-04-25 17:27 | XRay Report ---
EXAMINATION: X-ray knee left 1 or 2 view routine CLINICAL HISTORY: Trauma PRIORS: None TECHNIQUE: Frontal and lateral crosstable view. FINDINGS: Mild osseous demineralization noted. Moderate to large degree of prepatellar soft tissue swelling noted. No acute displaced fracture or dislocation. Wyep-em-armk degenerative change of the medial compartment. Mild joint space narrowing of the lateral compartment. No suprapatella joint effusion. Patella is not high riding. Vascular calcifications noted. IMPRESSION: Moderate prepatellar soft tissue swelling with no plain film evidence of an acute osseous abnormality. ACT 112: Positive. There are findings on this examination that require communication between the performing entity and the patient following Patient Test Result Information Act ([place] ACT 112) guidelines. Electronically signed by Maria E Torres 04-25-2025 5:27 PM
--- NOTE | 2025-04-25 17:27 | XRay Report ---
EXAMINATION: X-ray knee right 1 or 2 view CLINICAL HISTORY: Trauma PRIORS: None TECHNIQUE: Frontal and lateral view. FINDINGS: A right total knee arthroplasty is present with near anatomic alignment. No periprosthetic fracture or signs of loosening. Vascular calcifications present. Ossicles noted superior to the patella on the lateral view. No soft tissue swelling. IMPRESSION: Right total knee arthroplasty with no acute fracture or dislocation. Electronically signed by Maria E Torres 04-25-2025 5:27 PM
--- NOTE | 2025-04-25 17:27 | XRay Report ---
EXAMINATION: X-ray pelvis 1 2 view routine CLINICAL HISTORY: Potential fracture, trauma PRIORS: None TECHNIQUE: Frontal view pelvis FINDINGS: Moderate osseous demineralization noted. Urinary bladder is partly distended with radio opaque material. Overlying bowel gas and stool obscures fine bone detail. Allowing for this, no displaced fracture or widening of the pubic symphysis. No soft tissue calcification or abnormality. IMPRESSION: No plain film evidence of an acute displaced fracture, within the limitations of the study. Electronically signed by Maria E Torres 04-25-2025 5:23 PM
--- NOTE | 2025-04-25 17:27 | XRay Report ---
EXAM: X-ray chest one-view portable CLINICAL HISTORY: Trauma PRIORS: 10/25/2022 TECHNIQUE: Supine AP chest FINDINGS: Large body habitus noted. Lung volumes are diminished. No airspace consolidation or pneumothorax. Heart size is normal. Trachea is patent. Osseous structures demonstrate no acute abnormality. No radiopaque foreign body. IMPRESSION: No plain film evidence of an acute cardiopulmonary process. A chest CT is also been performed which was dictated under separate heading. Electronically signed by Maria E Torres 04-25-2025 5:21 PM
--- NOTE | 2025-04-25 18:12 | Emergency Department Note ---
ED Visit Note Patient care signed out to me from Dr. Healy. Pending CT imaging/x-ray. Patient has inferior orbital fracture, nondisplaced. Will give antibiotics. Due to elevated troponin and lactic acid, will admit as well. No signs of overt infection at this time.
--- NOTE | 2025-04-25 18:39 | History & Physical Report ---
Date of Service April 25, 2025 Assessment & Plan (1) Fall: (2) Orbital floor fracture: (3) High serum lactate: (4) Elevated troponin: Plan This patient is a 79-year-old male with a history of dementia, DM 2 with neuropathy, HTN, HLD, depression, GERD/Hollis's esophagus, orthostatic hypotension, Parkinson's disease, severe RAZ/nocturnal hypoxia declines CPAP overactive bladder who presents to the ED after sustaining a fall onto his face. His reports that the patient walked out of the house without her knowledge and fell down a neighbors driveway. He sustained a laceration to the scalp and had swelling and bruising around the left eye. He is more confused than his baseline as per . He is on aspirin 81 mg daily but no other anticoagulation. He was a trauma alert in the ED. He had a CT of the head/face/cervical spine/chest/abdomen/pelvis/thoracic spine/lumbar spine, pelvis x-ray, bilateral knee x-rays, a CXR, and a left hand x-ray-he was found to have an nondisplaced fracture of the inferior wall of the left orbit, and moderate prepatellar soft tissue swelling of the left knee but otherwise no fractures. His lab work was notable for a mild leukocytosis, microcytic anemia with an Hgb of 10.9, and initial lactate of 5.3, and a troponin of 33.7 with a repeat 2 hours later of 45.2. ECG with new RBBB and LAFB, but no definite ischemic changes. His repeat lactate came down 4.5 after IV fluids. He was given 1 dose of Augmentin and a tetanus shot. He will be admitted for fall with orbital fracture, closed head injury with likely concussion, elevated lactate, and elevated troponin. #Fall/orbital floor fracture/knee and hand contusions-fall was unwitnessed but patient reports he lost his balance. He also has a history of orthostasis which could have contributed. Perhaps had a ventricular arrhythmia? His extraocular muscles are intact and no other fractures other than the orbital floor. Troponin mildly elevated but could be due to myocardial demand ischemia-no acute ischemic changes on ECG and patient denies chest pain. - Admit to telemetry unit for arrhythmia monitoring - Local wound care to multiple contusions, no sutures required to laceration over left brow region - Ice pack to the left periorbital region - Tylenol as needed for pain - Augmentin 875/125 mg p.o. twice daily x 7-day course for prophylaxis for orbital fracture - PT/OT consults placed - Plan to do tertiary trauma survey within 24 hours #Dementia/Parkinson's disease/acute encephalopathy/closed head injury/suspected concussion-CT head without intracranial hemorrhage. More confused than usual could be due to concussion. Previously followed with neurology and was on Sinemet but no longer does and is not on that medication. - Supportive care - Continue home memantine, donepezil #Elevated lactate-lactate elevated at 5.3 on arrival and down 4.5 after IV fluids. He has no evidence of sepsis otherwise and blood pressures have been elevated. Mild leukocytosis likely from stress response. Elevated lactate could be from adrenergic response. He is not hypoxic. He does not have a metabolic acidosis. He also does have evidence of hepatosplenomegaly on imaging and could have some liver dysfunction contributing to poor clearance of lactate. - Continue 1 more liter of LR - Check lactate 2 hours from the last #Elevated troponin-troponin mildly elevated 35 and up to 42 on repeat check. ECG without acute ischemic changes but with new RBBB and LAFB from 2022. Patient denies chest pain. Perhaps had an arrhythmia or orthostatic hypotension that caused his fall. Could be myocardial demand ischemia - Follow serial troponin - Check echocardiogram - Monitor on telemetry #Microcytic anemia-Hgb low at 10.9, severely microcytic with MCV 69. Baseline Hgb 1 year prior was 12.6 without microcytosis. - Check iron studies, B12, folate, TSH in a.m. - Follow CBC #DM2 with neuropathy-HgbA1c not well-controlled on last check. - Continue home Lantus 15 units at night - NovoLog sliding scale - Hold home metformin and Januvia - Diabetic diet #HTN/HLD/orthostatic hypotension-BPs are mildly elevated here but he no longer takes medication for this due to his orthostasis - Continue atorvastatin, aspirin #Depression-no acute issues - Continue home bupropion #GERD/Hollis's esophagus-no acute issues - Continue home Protonix #Severe RAZ not on CPAP-patient has declined CPAP in the past - Plan to do overnight pulse oximetry prior to discharge to get him qualified for nocturnal O2 DVT prophylaxis-SCDs, Lovenox SQ Disposition-admit to PCU History of Present Illness Chief Complaint: Fall, facial fracture, head injury Primary Care Provider: EH Leiva This patient is a 79-year-old male with a history of dementia, DM 2 with neuropathy, HTN, HLD, depression, GERD/Hollis's esophagus, orthostatic hypotension, Parkinson's disease, severe RAZ/nocturnal hypoxia declines CPAP overactive bladder who presents to the ED after sustaining a fall onto his face. His reports that the patient walked out of the house without her knowledge and fell down a neighbors driveway. He sustained a laceration to the scalp and had swelling and bruising around the left eye. He is more confused than his baseline as per . He is on aspirin 81 mg daily but no other anticoagulation. He was a trauma alert in the ED. The patient tells me that he was walking and lost his balance and fell onto his face. He denies passing out. However, he also tells me that he is currently at his [id number]-ik-[id number]'s house. He denies chest pain or shortness of breath. He had a CT of the head/face/cervical spine/chest/abdomen/pelvis/thoracic spine/lumbar spine, pelvis x-ray, bilateral knee x-rays, a CXR, and a left hand x-ray-he was found to have an nondisplaced fracture of the inferior wall of the left orbit, and moderate prepatellar soft tissue swelling of the left knee but otherwise no fractures. His lab work was notable for a mild leukocytosis, microcytic anemia with an Hgb of 10.9, and initial lactate of 5.3, and a troponin of 33.7 with a repeat 2 hours later of 45.2. ECG with new RBBB and LAFB, but no definite ischemic changes. His repeat lactate came down 4.5 after IV fluids. He was given 1 dose of Augmentin and a tetanus shot. He will be admitted for fall with orbital fracture, closed head injury with likely concussion, elevated lactate, and elevated troponin. Allergies Allergy/AdvReac Type Severity Reaction Status Date / Time No Known Allergies Allergy Verified 02/21/25 13:25 Home Medications Medication Instructions Recorded Confirmed Type aspirin 81 mg tablet,delayed 81 mg PO DAILY 04/22/18 02/21/25 History release cyanocobalamin (vitamin B-12) 1,000 mcg PO DAILY 10/15/20 02/21/25 History 1,000 mcg capsule cholecalciferol (vitamin D3) 25 3,000 unit PO DAILY 09/05/22 02/21/25 History mcg (1,000 unit) capsule blood-glucose meter (OneTouch #1 ea 10/31/22 02/21/25 Rx Ultra2 Meter) walker with wheels and brakes and See Rx Instructions .Route 11/17/22 02/21/25 Rx seat .COMPLEX #1 ea magnesium oxide 400 mg PO DAILY 30 days #30 tabs 11/28/22 02/21/25 Rx potassium gluconate 595 mg (99 mg) 595 mg PO DAILY 01/19/23 02/21/25 History tablet sitagliptin phosphate 50 mg tablet 50 mg PO DAILY #90 tabs 05/04/23 07/01/24 Rx (Januvia) insulin glargine 100 unit/mL (3 15 unit (0.15 mL) subcut QPM #15 mL 04/25/24 02/21/25 Rx mL) subcutaneous pen (Lantus Solostar U-100 Insulin) pantoprazole 40 mg tablet,delayed See Rx Instructions .Route 08/15/24 02/21/25 Rx release .COMPLEX #90 tabs docusate sodium 100 mg capsule 100 mg PO DAILY 10/20/24 02/21/25 History (Colace) blood sugar diagnostic (OneTouch #200 ea 11/02/24 02/21/25 Rx Ultra Test strips) lancets 33 gauge #200 ea 11/02/24 02/21/25 Rx metformin 1,000 mg tablet 1,000 mg PO BID #60 tabs 11/11/24 02/21/25 Rx atorvastatin 10 mg tablet 10 mg PO HS #90 tabs 12/14/24 02/21/25 Rx memantine 10 mg tablet 10 mg PO BID #60 tabs 12/14/24 02/21/25 Rx bupropion HCl 150 mg 24 hr tablet, 150 mg PO .COMPLEX 90 days #90 tabs 02/13/25 02/21/25 Rx extended release (Wellbutrin XL) hydrocortisone 2.5 % topical cream 1 applic [place] DAILY PRN hemorrhoids 02/13/25 02/21/25 Rx with perineal applicator #30 grams (Proctosol HC) silver sulfadiazine 1 % topical 1 applic topical BID #25 grams 02/13/25 02/21/25 Rx cream (Silvadene) donepezil 10 mg tablet 10 mg PO DAILY #90 tabs 04/10/25 Rx pen needle, diabetic, safety 30 #100 ea 04/10/25 Rx gauge x 08/21" Past Med/Surg History Problem List (Updated 04/25/25 @ 18:38 by Taina Allison MD) Elevated troponin Orbital floor fracture Fall (Acute) High serum lactate (Acute) Facial injury (Acute) Decubitus ulcer of sacral area Depression Hyperlipidemia Soft hoarse voice Risk for falls Muscular deconditioning Fatigue Parkinsonism Dementia Nocturnal hypoxia pt refuses nocturnal O2 Allergic rhinitis (Acute) Diabetic peripheral neuropathy (Chronic) Elevated serum globulin level (Acute) Elevated total protein (Acute) Reflux esophagitis (Acute) Orthostatic hypotension (Acute) Chronic lumbar pain (Chronic) Neurologic gait dysfunction (Chronic) Diabetes mellitus, type 2 (Chronic) Overactive bladder (Chronic) Osteoarthritis (Chronic) Degenerative disc disease (Chronic) Vertigo (Chronic) Medical History Elevated lactic acid level RAZ (obstructive sleep apnea) pt refuses cpap or nocturnal oxygen Metaplasia of esophagus Chronic cerebral ischemia Diverticulosis of colon Pulmonary nodules Smokeless tobacco use Solitary thyroid nodule VBI (vertebrobasilar insufficiency) Hollis's esophagus Hemorrhoid Hypertension no meds due to orthostasis Surgical History History of tooth extraction History of knee replacement Right H/O vasectomy Family History Mother Family history of diabetes mellitus Breast cancer Grandmother (Paternal) Myocardial infarction Denies family history of Ovarian cancer Prostate cancer Colorectal cancer Social History Smoking Status: Former smoker Tobacco Type: Smokeless Tobacco (Dip or Chew) Age Started Using Tobacco: 18; Age Quit Using Tobacco: 35; packs per day: 0.5; Cigarettes Per Day: CHEWS ON A CIGAR EVERY ONCE IN A WHILE; Second Hand Exposure: No; Do You Dip or Chew Tobacco: Yes; Hx Alcohol Use: No Hx Substance Use: No Preferred Language: [place] Islander Communication Ability: Effective Visual Impairment: Limited Hearing Ability: Normal 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 Required: No Beliefs That Will Affect Care: None marital status: Current Living Situation: Spouse current occupational status: retired How many Children do You have: 1 Feels Safe at Home: Yes Childhood Exposure to Second-Hand Smoke: Yes Diet: diabetic caffeine: Yes during the past year weight has: remained stable Dental Care, Regularly: No Physical Activity Frequency: 1-2 Times per Week Seatbelt Use: always Sunscreen Use: No Do you think of yourself as: straight/heterosexual Sexual Activity: has been sexually active, but not for at least 12 months Gender Identity: Male Assistive Devices: Cane, Glasses and Walker Review of Systems Review of Systems: Unobtainable due to cognitive status Physical Exam Constitutional: WD/WN, vitals as above Eyes: normal visual rico by confrontation, + eyelid abnormality (Left lid significant edema), + anicteric sclerae, PERRL, normal accommodation and EOM intact bilaterally; no anisocoria and no nystagmus With significant left periorbital ecchymosis Small 1 cm laceration left upper brow region without active bleeding, edges of skin well-approximated ENMT: external ear and nose normal, oropharynx normal Neck: trachea midline, no thyromegaly Respiratory: normal respiratory effort, lungs clear to auscultation Cardiovascular: RRR, no murmur, no edema Chest (Breasts): Chest: normal inspection of chest Gastrointestinal (Abdomen): normal bowel sounds, soft, nontender, no hepatosplenomegaly Musculoskeletal: Extremities: + extremities abnormal to inspection (Left knee significant prepatellar swelling of bursa), no cyanosis and no clubbing Skin: Trauma: + abrasion (Bilateral knees, left elbow, left hand) Neurologic: moves all extremities and awake; no focal motor deficits Psychiatric: A+Ox3, euthymic affect Lymphatic: no lymphedema Results & Data Results & Data Vital Signs (Past 12 Hours) Vital Signs Temp Pulse Resp BP Pulse Ox O2 Del Method 04/25/25 17:39 107 H 04/25/25 17:00 93 H 153/93 H 94 Room Air 04/25/25 16:30 150/86 H 95 Room Air 04/25/25 15:30 113 H 20 140/91 93 Room Air 04/25/25 15:00 111 H 18 93 Room Air 04/25/25 14:30 110 H 19 142/96 H 04/25/25 13:10 36.7 C 113 H 18 129/88 94 Room Air 04/25/25 12:53 108 H Laboratory Results CBC, CMP, PT/PTT/INR, ionized calcium, troponin x 2, lactate x 2, lipase, UA reviewed Diagnostic Findings Imaging as noted in HPI ECG Additional Comments: ECG on 04/25/2025 at 1531 with sinus tachycardia, rate 113, RBBB, LAFB new from previous, no acute ischemic changes Code Status & VTE Plan Code Status Full code VTE Prophylaxis Plan VTE Prophylaxis will be ordered: Yes PG Care Time/CCT Total # of Minutes Spent Total Time Spent with Patient: Total time spent is greater than 50% in coordination of care (as documented) at patient's floor/unit and/or counseling patient: Coding Level of Care Code 92009 INT INP/OBS CARE 3/75MIN Diagnoses Fall W19.XXXA Orbital floor fracture S02.30XA High serum lactate R79.89 Elevated troponin R79.89
[2025-04-25] MEDS: AMOXICILLIN/CLAVULANATE 875 MG TAB PO ONE (18:54)
[2025-04-25] MEDS ORDERED: CARBOHYDRATES FOR HYPOGLYCEMIA PO PRN (20:45)
[2025-04-25] MEDS ORDERED: GLUCOSE 40% GEL 15 GM TUBE PO PRN (20:45)
[2025-04-25] MEDS ORDERED: DEXTROSE 50% 50 ML SYRINGE IV PRN (20:45)
[2025-04-25] MEDS ORDERED: ONDANSETRON INJ 2 MG/ML 2 ML VIAL IV PRN (20:45)
[2025-04-25] MEDS ORDERED: GLUCOSE 10 TAB/TUBE PO PRN (20:45)
[2025-04-25] MEDS ORDERED: POLYETHYLENE (MIRALAX) 17 GM PACK PO PRN (20:45)
[2025-04-25] MEDS ORDERED: GLUCAGON FOR INJ 1 MG VIAL SQ PRN (20:45)
[2025-04-25] MEDS: LACTATED RINGER'S 1,000 ML IV SCH (20:56)
[2025-04-25] MEDS: INSULIN ASPART PER UNIT CHARGE SC SCH (21:04)
[2025-04-25] MEDS: LANTUS PER UNIT CHARGE SC SCH (21:04)
[2025-04-25] MEDS: MELATONIN 3 MG TAB PO PRN (22:37)
[2025-04-25] MEDS: ATORVASTATIN 10 MG TAB PO SCH (22:37)
[2025-04-25] MEDS: MEMANTINE HCL 10 MG TAB PO SCH (22:38)
[2025-04-25] MEDS: ENOXAPARIN INJ 40 MG/0.4 ML SYR SQ SCH (22:38)
[2025-04-26 06:53] LABS: Hematocrit (blood only) 29.4 % (42.0-52.0); Hemoglobin 8.8 g/dL (14.0-18.0); Immature Granulocytes # (auto) 0.03 K/uL (0.01-0.20); Immature Granulocytes % (auto) 0.4 %; Mean Corpuscular Hemoglobin 20.8 pg (25.0-34.0); Mean Corpuscular Volume 69.3 fL (80.0-100.0); RDW Standard Deviation 46.7 fL (36.4-46.3); Red Blood Count 4.24 M/uL (4.70-6.10); White Blood Count 8.23 K/ul (4.8-10.8)
[2025-04-26 07:14] LABS: Alanine Aminotransferase 13.0 U/L (7-52); Albumin Globulin Ratio 1.3 (0.9-2); Albumin Level 3.6 gm/dl (3.4-5.0); Alkaline Phosphatase 51.0 U/L (34-104); Anion Gap 9.0 (3-11); Bilirubin,Total 0.3 mg/dl (0.2-1.0); Blood Urea Nitrogen 12.0 mg/dl (6-23); Calcium 8.8 mg/dl (8.6-10.3); Carbon Dioxide 27.0 mmol/L (21-32); Chloride 103.0 mmol/L (98-107); Creatinine Clr Calc Pharmacy 102.3 ml/min; Globulin 2.7 gm/dl (2.5-4.0); Glucose 111.0 mg/dl (70-99(Fasting)); Iron 19.0 mcg/dl (35-175); Magnesium 1.8 mg/dl (1.7-2.4); Potassium 3.7 mmol/L (3.5-5.1); Sodium 139.0 mmol/L (136-145); Total Iron Binding Cap Calc 332.0 mcg/dl (250-450); Total Protein 6.3 gm/dl (6.0-8.3); Transferrin 237.0 mg/dl (200-360); Transferrin (FE) Percent Satur 6.0 % (20-50)
[2025-04-26 07:19] LABS: Platelet Count 244 K/uL (130-400)
[2025-04-26 07:20] LABS: Microcytosis Present; Ovalocytes 1+; Polychromasia 1+
[2025-04-26 07:31] LABS: Ferritin 12.9 ng/ml (8-388)
[2025-04-26 07:51] LABS: Hemoglobin A1C 6.6 % (4.5-5.6)
[2025-04-26] MEDS: CHOLECALCIFEROL 25 MCG (1000 UNITS) TAB PO SCH (08:16)
[2025-04-26] MEDS: ASPIRIN 81 MG ECTAB PO SCH (08:16)
[2025-04-26] MEDS: AMOXICILLIN/CLAVULANATE 875 MG TAB PO SCH (08:17)
[2025-04-26] MEDS: CYANOCOBALAMIN (B-12) 500 MCG TABLET PO SCH (08:17)
[2025-04-26] MEDS: DONEPEZIL HCL 10 MG TAB PO SCH (08:17)
[2025-04-26] MEDS: MAGNESIUM OXIDE 400 MG TAB PO SCH (08:19)
[2025-04-26] MEDS: DOCUSATE SODIUM 100 MG CAP PO SCH (08:19)
[2025-04-26] MEDS: FERROUS SULFATE 325 MG TAB PO SCH (09:27)
[2025-04-26] MEDS: ACETAMINOPHEN 325 MG TAB PO PRN (09:28)
[2025-04-26 10:23] LABS: Folate (Folic Acid),Ser orPlas 8.28 ng/ml (>5.38)
[2025-04-26 10:24] LABS: Vitamin B12 674.0 pg/ml (180-914)
--- NOTE | 2025-04-26 12:51 | Hospitalist Progress Note ---
Date of Service April 26, 2025 Assessment & Plan (1) Fall: (2) Orbital floor fracture: (3) High serum lactate: (4) Elevated troponin: Plan This patient is a 79-year-old male with a history of dementia, DM 2 with neuropathy, HTN, HLD, depression, GERD/Hollis's esophagus, orthostatic hypotension, Parkinson's disease, severe RAZ/nocturnal hypoxia declines CPAP overactive bladder who presents to the ED after sustaining a fall onto his face. His reports that the patient walked out of the house without her knowledge and fell down a neighbors driveway. He sustained a laceration to the scalp and had swelling and bruising around the left eye. He is more confused than his baseline as per . He is on aspirin 81 mg daily but no other anticoagulation. He was a trauma alert in the ED. He had a CT of the head/face/cervical spine/chest/abdomen/pelvis/thoracic spine/lumbar spine, pelvis x-ray, bilateral knee x-rays, a CXR, and a left hand x-ray-he was found to have an nondisplaced fracture of the inferior wall of the left orbit, and moderate prepatellar soft tissue swelling of the left knee but otherwise no fractures. His lab work was notable for a mild leukocytosis, microcytic anemia with an Hgb of 10.9, and initial lactate of 5.3, and a troponin of 33.7 with a repeat 2 hours later of 45.2. ECG with new RBBB and LAFB, but no definite ischemic changes. His repeat lactate came down 4.5 after IV fluids. He was given 1 dose of Augmentin and a tetanus shot in ED. He was admitted for fall with orbital fracture, closed head injury with likely concussion, elevated lactate, and elevated troponin. #Fall/orbital floor fracture/knee and hand contusions-fall was unwitnessed but patient reports he lost his balance. He also has a history of orthostasis which could have contributed. Perhaps had a ventricular arrhythmia? His extraocular muscles are intact and no other fractures other than the orbital floor. Troponin mildly elevated but could be due to myocardial demand ischemia-no acute ischemic changes on ECG and patient denies chest pain. - No events on telemetry overnight-continue to monitor - Local wound care to multiple contusions, no sutures required to laceration over left brow region - Ice pack to the left periorbital region - Tylenol as needed for pain - Augmentin 875/125 mg p.o. twice daily x 7-day course for prophylaxis for orbital fracture - PT/OT recommending rehab, informed CM - 24 hour tertiary survey completed and unremarkable #Dementia/Parkinson's disease/acute encephalopathy/closed head injury/suspected concussion-CT head without intracranial hemorrhage. More confused than usual could be due to concussion. Previously followed with neurology and was on Sinemet but no longer does and is not on that medication. - Supportive care - Continue home memantine, donepezil #Elevated lactate-lactate elevated at 5.3 on arrival and down 4.2 after IV fluids. He has no evidence of sepsis otherwise and blood pressures have been elevated. Mild leukocytosis on arrival likely from stress response, now resolved. Elevated lactate could be from adrenergic response. He also does have evidence of hepatosplenomegaly on imaging and could have some liver dysfunction that contributed to poor clearance of lactate. #Elevated troponin-troponin peaked at 50.6 then down trended. ECG without acute ischemic changes but with new RBBB and LAFB from 2022. Patient denies chest pain. Perhaps had an arrhythmia or orthostatic hypotension that caused his fall. Suspect elevated troponin was secondary to myocardial demand ischemia - Echocardiogram with EF 55-60%, normal LV size and systolic function, no regional wall motion abnormalities, moderate concentric LVH, septal motion consistent with BBB, mild biatrial dilation, sclerotic aortic valve without significant stenosis #Microcytic anemia-Hgb low at 10.9 on arrival and severely microcytic with MCV 69. Baseline Hgb 1 year prior was 12.6 without microcytosis. - Iron panel consistent with iron deficiency anemia. Started ferrous sulfate 325 mg daily - B12 and folate WNL - reports his last colonoscopy was sometime in his 60s. His last EGD was in 2019. Concern for underlying malignancy. Will discuss with again tomorrow how much of a workup her and Rodri would want to investigate this new microcytic anemia #DM2 with neuropathy - HgbA1c 6.6%, improved from prior A1c in October 2024 - Continue home Lantus 15 units at night - NovoLog sliding scale - Hold home metformin and Januvia - Diabetic diet #HTN/HLD/orthostatic hypotension-BPs are mildly elevated here but he no longer takes medication for this due to his orthostasis - Continue atorvastatin, aspirin #Depression-no acute issues - Continue home bupropion #GERD/Hollis's esophagus-no acute issues - Continue home Protonix #Severe RAZ not on CPAP-patient has declined CPAP in the past - Plan to do overnight pulse oximetry prior to discharge to get him qualified for nocturnal O2-this can be done at long term facility/rehab DVT prophylaxis-SCDs, Lovenox SQ Disposition-PT/OT recommending rehab. Referrals made by case management Started daily iron supplementation Updated at bedside Admission and Anticipated Discharge Date Admission Date: April 25, 2025 Supervising Physician Co-Signing Physician Notes PA Supervision Note: I did not personally see or examine the patient today, but I verified all becerra points of MARIELA Regan's assessment and plan with the following exceptions/additions: None Subjective Patient seen and evaluated at bedside. He is pleasantly confused. He denies any pain and notes "the only thing that's hurt is my pride." He is only oriented to person at this time. RN reports he is cooperative with his care, just requires redirection. PT/OT evaluated him this morning and are recommending rehab. Rodri denies any headache or visual changes. He has been incontinent of his urine today. No additional complaints or concerns at this time. Return to bedside when was visiting later in the afternoon. Provided her with a medical update. She confirms that Rodri is a full code. She reports his last colonoscopy was sometime in his 60s and he has had an EGD previously but cannot recall exactly how long ago. Telemetry reviewed: NSR with PACs, rates 50-90s. Physical Exam Physical Exam: Tertiary Survey: Objective: All labs and imaging reports reviewed. Physical Exam: General: - Alert: Yes - Oriented: Yes - to person (base line) - GCS 15 HEENT: - No pain/tenderness. - 1 cm laceration to left upper b row region, edges of skin well- approximated. Significant left periorbital and chin ecchymosis. Left periorbital edema noted. - No numbness/tingling . - PERLAA. Normal Visual Acuity. N o visual field cuts. No nystagmus. Normal hearing. No relative afferent pupillary defect. No facial asymmetry. Uvula midline. Midline tongue protrusion. - Mucous membranes moist. Neck: - Midline Tenderness: No - Cleared C-Spine: Yes Thorax: - Pain/Tenderness: None - Lacerations/Abrasions: None - Swelling/Ecchymosis: None - Air/Bony Crepitus: None Cardiopulmonary: - Regular Rate and Rhythm. No mur murs, rubs or gallops. - Breath sounds CTAB. No wheezes, rales, or rhonchi. - Symmetrical Chest Rise Abdomen - Pain/Tenderness: None - Lacerations/Abrasions: None - No abdominal distension - Abdominal rigidity/guarding: No ne - Bowel Sounds: Present, normal - Pelvis stable Back/Spine - Lacerations/Abrasions: None - Swelling/Ecchymosis: None - Pain/Tenderness: None - Step-offs: None Extremities: - RUE: No deformity. No laceratio ns/abrasions. No swelling/ecchymosis. No pain/tenderness. Full active and passive range of motion. Frozen Yogurt Maker strength, elbow flexion/extension, shoulder flexion/extension/abduction/adduction/external rotation/internal rotation intact with 5/5 strength. Sensation intact to soft touch without deficit. Radial pulse intact, cap refill in the thumb <2 seconds. - RLE: Abrasions noted on right k nee. No deformity. No significant swelling/ecchymosis. No pain/tenderness. Full active and passive range of motion. Hip flexion/extension, knee flexion/extension, ankle dorsiflexion/plantarflexion with 5/5 strength. Sensation intact to soft touch without deficit. PT pulse intact to palpation, cap refill in the hallux <2 seconds. - LUE: Abrasions noted on left do rsal hand. No deformity. No significant swelling/ecchymosis. No pain/tenderness. Full active and passive range of motion. Frozen Yogurt Maker strength, elbow flexion/extension, shoulder flexion/extension/abduction/adduction/external rotation/internal rotation intact with 5/5 strength. Sensation intact to soft touch without deficit. Radial pulse intact, cap refill in the thumb <2 seconds. - LLE: Left knee with significant prepatellar swelling. Abrasions noted on right knee. No significant ecchymosis. No pain/tenderness. Full active and passive range of motion. Hip flexion/extension, knee flexion/extension, ankle dorsiflexion/plantarflexion with 5/5 strength. Sensation intact to soft touch without deficit. PT pulse intact to palpation, cap refill in the hallux <2 seconds. Mental status Adequate for Full Exam: Yes C-Spine Cleared (Radiologically AND Clinically): Yes Results & Data Results & Data Vital Signs (Past 12 Hours) Vital Signs Temp Pulse Pulse Pulse Resp BP Pulse Ox 04/26/25 12:43 98.1 F 85 18 158/90 H 91 04/26/25 09:34 71 04/26/25 09:34 04/26/25 08:11 98.5 F 85 19 122/75 94 04/26/25 04:09 98.2 F 88 19 129/75 94 O2 Del Method 04/26/25 12:43 Room Air 04/26/25 09:34 04/26/25 09:34 Room Air 04/26/25 08:11 Room Air 04/26/25 04:09 Room Air Laboratory Results Reviewed CBC with differential, CMP, iron panel, A1c, chemistries Diagnostic Findings Reviewed extensive CT and x-ray imaging, echocardiogram PG Care Time/CCT Total # of Minutes Spent Total Time Spent with Patient: Total time spent is greater than 50% in coordination of care (as documented) at patient's floor/unit and/or counseling patient: Coding Level of Care Code 38938 SUB INP/OBS CARE 3/50MIN Diagnoses Fall W19.XXXA Orbital floor fracture S02.30XA High serum lactate R79.89 Elevated troponin R79.89
--- NOTE | 2025-04-26 13:58 | XCELERA ---
[id number]
[2025-04-27 06:37] LABS: Hematocrit (blood only) 29.3 % (42.0-52.0); Hemoglobin 8.6 g/dL (14.0-18.0); Mean Corpuscular Hemoglobin 20.4 pg (25.0-34.0); Mean Corpuscular Volume 69.6 fL (80.0-100.0); Platelet Count 255 K/uL (130-400); RDW Standard Deviation 47.0 fL (36.4-46.3); Red Blood Count 4.21 M/uL (4.70-6.10); White Blood Count 7.29 K/ul (4.8-10.8)
--- NOTE | 2025-04-27 11:27 | Hospitalist Progress Note ---
Date of Service April 27, 2025 Assessment & Plan (1) Fall: (2) Orbital floor fracture: (3) High serum lactate: (4) Elevated troponin: Plan This patient is a 79-year-old male with a history of dementia, DM 2 with neuropathy, HTN, HLD, depression, GERD/Hollis's esophagus, orthostatic hypotension, Parkinson's disease, severe RAZ/nocturnal hypoxia declines CPAP overactive bladder who presents to the ED after sustaining a fall onto his face. His reports that the patient walked out of the house without her knowledge and fell down a neighbors driveway. He sustained a laceration to the scalp and had swelling and bruising around the left eye. He is more confused than his baseline as per . He is on aspirin 81 mg daily but no other anticoagulation. He was a trauma alert in the ED. He had a CT of the head/face/cervical spine/chest/abdomen/pelvis/thoracic spine/lumbar spine, pelvis x-ray, bilateral knee x-rays, a CXR, and a left hand x-ray-he was found to have an nondisplaced fracture of the inferior wall of the left orbit, and moderate prepatellar soft tissue swelling of the left knee but otherwise no fractures. His lab work was notable for a mild leukocytosis, microcytic anemia with an Hgb of 10.9, and initial lactate of 5.3, and a troponin of 33.7 with a repeat 2 hours later of 45.2. ECG with new RBBB and LAFB, but no definite ischemic changes. His repeat lactate came down 4.5 after IV fluids. He was given 1 dose of Augmentin and a tetanus shot in ED. He was admitted for fall with orbital fracture, closed head injury with likely concussion, elevated lactate, and elevated troponin. #Fall/orbital floor fracture/knee and hand contusions-fall was unwitnessed but patient reports he lost his balance. He also has a history of orthostasis which could have contributed. Perhaps had a ventricular arrhythmia? His extraocular muscles are intact and no other fractures other than the orbital floor. Troponin mildly elevated but could be due to myocardial demand ischemia-no acute ischemic changes on ECG and patient denies chest pain. - No events on telemetry overnight-continue to monitor - Local wound care to multiple contusions, no sutures required to laceration over left brow region - Ice pack to the left periorbital region - Tylenol as needed for pain - Augmentin 875/125 mg p.o. twice daily x 7-day course for prophylaxis for orbital fracture - PT/OT recommending rehab, informed CM - Tertiary survey completed 24 hours after admission and unremarkable #Dementia/Parkinson's disease/acute encephalopathy/closed head injury/suspected concussion-CT head without intracranial hemorrhage. More confused than usual could be due to concussion. Previously followed with neurology and was on Sinemet but no longer does and is not on that medication. - Supportive care - Continue home memantine, donepezil #Elevated lactate-lactate elevated at 5.3 on arrival and down 4.2 after IV fluids. He has no evidence of sepsis otherwise and blood pressures have been elevated. Mild leukocytosis on arrival likely from stress response, now resolved. Elevated lactate could be from adrenergic response. He also does have evidence of hepatosplenomegaly on imaging and could have some liver dysfunction that contributed to poor clearance of lactate. #Elevated troponin-troponin peaked at 50.6 then down trended. ECG without acute ischemic changes but with new RBBB and LAFB from 2022. Patient denies chest pain. Perhaps had an arrhythmia or orthostatic hypotension that caused his fall. Suspect elevated troponin was secondary to myocardial demand ischemia - Echocardiogram with EF 55-60%, normal LV size and systolic function, no regional wall motion abnormalities, moderate concentric LVH, septal motion consistent with BBB, mild biatrial dilation, sclerotic aortic valve without significant stenosis #Microcytic anemia-Hgb low at 10.9 on arrival and severely microcytic with MCV 69. Baseline Hgb 1 year prior was 12.6 without microcytosis. Hgb trending down again to 8.6, mild tachycardia. No obvious bleeding - Iron panel consistent with iron deficiency anemia. Started ferrous sulfate 325 mg daily - B12 and folate WNL - reports his last colonoscopy was sometime in his 60s. His last EGD was in 2019. Concern for underlying malignancy. Will discuss with again tomorrow how much of a workup her and Rodri would want to investigate this new microcytic anemia - Follow CBC in the morning #DM2 with neuropathy - HgbA1c 6.6%, improved from prior A1c in October 2024 - Continue home Lantus 15 units at night - NovoLog sliding scale - Hold home metformin and Januvia - Diabetic diet #HTN/HLD/orthostatic hypotension-BPs are mildly elevated here but he no longer takes medication for this due to his orthostasis - Continue atorvastatin, aspirin #Depression-no acute issues - Continue home bupropion #GERD/Hollis's esophagus-no acute issues - Continue home Protonix #Severe RAZ not on CPAP-patient has declined CPAP in the past - Recommend overnight pulse oximetry to get him qualified for nocturnal O2 - this can be done at [facility] facility/rehab DVT prophylaxis-SCDs, Lovenox SQ Disposition-PT/OT recommending rehab. Referrals made by case management Admission and Anticipated Discharge Date Admission Date: April 25, 2025 Supervising Physician Co-Signing Physician Notes PA Supervision Note: I did not personally see or examine the patient today, but I verified all becerra points of MARIELA Regan's assessment and plan with the following exceptions/additions: Check CBC, BMP in the a.m. Subjective Patient seen and evaluated in bedside chair. He reports "I am getting bored." He makes comments about enjoying joking with his nursing staff. He is confused but very pleasant. He denies any pain, Headache, shortness of breath, chest pain, abdominal pain. On physical exam, he did have some tenderness to palpation of his abdominal LUQ. He reports "it doesn't hurt when I don't think about it." He could not tell me if this is a new or chronic complaint. He has a good appetite and is sleeping well overnight. No additional complaints or concerns at this time. Telemetry reviewed: NSR 80-90s overnight, NSR/sinus tach in 90-110s this morning. Will continue to monitor on telemetry for now given the increasing trend of his HR. Physical Exam Physical Exam: General: No acute distress, nondiaphoretic, well-developed, well-nourished. Skin: Warm, dry. Scattered abrasions on his left hand, Left elbow, and bilateral knees. HEENT: PERRLA. EOM intact bilaterally, no nystagmus. Left eyelid with improving edema. Significant left periorbital ecchymosis remains. 1 cm laceration on left upper brow region without active bleeding, edges of skin well-approximated. Cardiac: Slightly tachycardic rate in 100s and regular rhythm without murmurs gallops or rubs. Pulm: Clear to auscultation bilaterally without wheezes, rales or rhonchi. Normal respiratory effort. 93% on room air. Abdominal: Soft, nondistended. Mild tenderness to palpation of LUQ. No rebound or guarding. Bowel sounds present. MSK: Significant left knee prepatellar swelling. Normal sensation and motor function in lower extremities bilaterally. Neuro: A&O x3. No focal neurological deficits. Results & Data Results & Data Vital Signs (Past 12 Hours) Vital Signs Temp Pulse Resp BP Pulse Ox O2 Del Method 04/27/25 11:01 98.4 F 104 H 20 138/75 93 Room Air 04/27/25 07:54 98.8 F 97 H 18 126/74 93 Room Air 04/27/25 07:00 Room Air 04/27/25 02:36 98.4 F 82 20 117/73 94 Room Air Laboratory Results Reviewed CBC PG Care Time/CCT Total # of Minutes Spent Total Time Spent with Patient: Total time spent is greater than 50% in coordination of care (as documented) at patient's floor/unit and/or counseling patient: Coding Level of Care Code 88587 SUB INP/OBS CARE 2/35MIN Diagnoses Fall W19.XXXA Orbital floor fracture S02.30XA High serum lactate R79.89 Elevated troponin R79.89
[2025-04-28 02:50] VITALS: RESP 18
[2025-04-28 06:37] LABS: Hematocrit (blood only) 29.1 % (42.0-52.0); Hemoglobin 8.8 g/dL (14.0-18.0); Immature Granulocytes # (auto) 0.03 K/uL (0.01-0.20); Immature Granulocytes % (auto) 0.4 %; Mean Corpuscular Hemoglobin 21.0 pg (25.0-34.0); Mean Corpuscular Volume 69.5 fL (80.0-100.0); RDW Standard Deviation 46.6 fL (36.4-46.3); Red Blood Count 4.19 M/uL (4.70-6.10); White Blood Count 7.49 K/ul (4.8-10.8)
[2025-04-28 07:09] LABS: Platelet Count 244 K/uL (130-400)
[2025-04-28 07:19] LABS: Microcytosis Present; Ovalocytes 1+; Polychromasia 1+
[2025-04-28 07:24] LABS: Anion Gap 7.0 (3-11); Blood Urea Nitrogen 16.0 mg/dl (6-23); Calcium 8.8 mg/dl (8.6-10.3); Carbon Dioxide 29.0 mmol/L (21-32); Chloride 104.0 mmol/L (98-107); Creatinine Clr Calc Pharmacy 92.4 ml/min; Glucose 140.0 mg/dl (70-99(Fasting)); Potassium 3.7 mmol/L (3.5-5.1); Sodium 140.0 mmol/L (136-145)
[2025-04-28 11:55] VITALS: BP 117/78; PULSE 98; TEMP 97.9; O2SAT 95
--- NOTE | 2025-04-28 14:15 | Discharge Summary ---
Discharge Summary Date of Service April 28, 2025 Principal Dx & Hospital Course #1 = Principal Diagnosis (1) Fall: (2) Orbital floor fracture: (3) High serum lactate: (4) Elevated troponin: Plan This patient is a 79-year-old male with a history of dementia, DM 2 with neuropathy, HTN, HLD, depression, GERD/Hollis's esophagus, orthostatic hypotension, Parkinson's disease, severe RAZ/nocturnal hypoxia declines CPAP overactive bladder who presents to the ED after sustaining a fall onto his face. His reports that the patient walked out of the house without her knowledge and fell down a neighbors driveway. He sustained a laceration to the scalp and had swelling and bruising around the left eye. He is more confused than his baseline as per . He is on aspirin 81 mg daily but no other anticoagulation. He was a trauma alert in the ED. He had a CT of the head/face/cervical spine/chest/abdomen/pelvis/thoracic spine/lumbar spine, pelvis x-ray, bilateral knee x-rays, a CXR, and a left hand x-ray-he was found to have an nondisplaced fracture of the inferior wall of the left orbit, and moderate prepatellar soft tissue swelling of the left knee but otherwise no fractures. His lab work was notable for a mild leukocytosis, microcytic anemia with an Hgb of 10.9, and initial lactate of 5.3, and a troponin of 33.7 with a repeat 2 hours later of 45.2. ECG with new RBBB and LAFB, but no definite ischemic changes. His repeat lactate came down 4.5 after IV fluids. He was given 1 dose of Augmentin and a tetanus shot in ED. He was admitted for fall with orbital fracture, closed head injury with likely concussion, elevated lactate, and elevated troponin. #Fall/orbital floor fracture/knee and hand contusions-fall was unwitnessed but patient reports he lost his balance. He also has a history of orthostasis which could have contributed. Perhaps had a ventricular arrhythmia? His extraocular muscles are intact and no other fractures other than the orbital floor. Troponin mildly elevated but could be due to myocardial demand ischemia-no acute ischemic changes on ECG and patient denies chest pain. - No events on telemetry - Local wound care to multiple contusions, no sutures required to laceration over left brow region - Ice pack to the left periorbital region - Tylenol as needed for pain - Augmentin 875/125 mg p.o. twice daily x 7-day course for prophylaxis for or bital fracture - PT/OT recommended rehab - Tertiary survey completed 24 hours after admission and unremarkable #Dementia/Parkinson's disease/acute encephalopathy/closed head injury/suspected concussion-CT head without intracranial hemorrhage. More confused than usual could be due to concussion. Previously followed with neurology and was on Sinemet but no longer does and is not on that medication. - Supportive care - Continue home memantine, donepezil #Elevated lactate-lactate elevated at 5.3 on arrival and down 4.2 after IV fluids. He has no evidence of sepsis otherwise and blood pressures have been elevated. Mild leukocytosis on arrival likely from stress response, now resolved. Elevated lactate could be from adrenergic response. He also does have evidence of hepatosplenomegaly on imaging and could have some liver dysfunction that contributed to poor clearance of lactate. #Elevated troponin-troponin peaked at 50.6 then down trended. ECG without acute ischemic changes but with new RBBB and LAFB from 2022. Patient denies chest pain. Perhaps had an arrhythmia or orthostatic hypotension that caused his fall. Suspect elevated troponin was secondary to myocardial demand ischemia - Echocardiogram with EF 55-60%, normal LV size and systolic function, no regional wall motion abnormalities, moderate concentric LVH, septal motion consistent with BBB, mild biatrial dilation, sclerotic aortic valve without significant stenosis #Microcytic anemia-Hgb low at 10.9 on arrival and severely microcytic with MCV 69. Baseline Hgb 1 year prior was 12.6 without microcytosis. Hgb trending down again to 8.6, mild tachycardia. No obvious bleeding - Iron panel consistent with iron deficiency anemia. Started ferrous sulfate 325 mg daily - B12 and folate WNL - reports his last colonoscopy was sometime in his 60s. His last EGD was in 2019. Concern for underlying malignancy. Recommend repeat EGD/colonoscopy outpatient if further workup is desired by patient/ #DM2 with neuropathy - HgbA1c 6.6%, improved from prior A1c in October 2024 - Continue home Lantus 15 units at night with NovoLog sliding scale & held home metformin and Januvia while admitted - Resume home regimen on discharge #HTN/HLD/orthostatic hypotension-BPs are mildly and intermittently elevated here but he no longer takes medication for this due to his orthostasis - Continue atorvastatin, aspirin #Depression-no acute issues - Continue home bupropion #GERD/Hollis's esophagus-no acute issues - Continue home Protonix #Severe RAZ not on CPAP-patient has declined CPAP in the past - Recommend overnight pulse oximetry to get him qualified for nocturnal O2 - this can be done at assisted facility/rehab DVT prophylaxis-SCDs, Lovenox SQ Disposition-Discharged to [facility] 04/28 Notes For Next Care Provider Recommend overnight pulse oximetry to get gland qualified for nocturnal O2 since he has declined CPAP previously. Recommend repeat EGD/colonoscopy if further workup of microcytic anemia is desired by Rodri/his . Medication Changes From Visit Augmentin twice daily x 7-day total course for orbital fracture prophylaxis Started ferrous sulfate 325 mg daily Tylenol as needed for pain Admission HPI Per Admitting Provider This patient is a 79-year-old male with a history of dementia, DM 2 with neuropathy, HTN, HLD, depression, GERD/Hollis's esophagus, orthostatic hypotension, Parkinson's disease, severe RAZ/nocturnal hypoxia declines CPAP overactive bladder who presents to the ED after sustaining a fall onto his face. His reports that the patient walked out of the house without her knowledge and fell down a neighbors driveway. He sustained a laceration to the scalp and had swelling and bruising around the left eye. He is more confused than his baseline as per . He is on aspirin 81 mg daily but no other anticoagulation. He was a trauma alert in the ED. The patient tells me that he was walking and lost his balance and fell onto his face. He denies passing out. However, he also tells me that he is currently at his [place]abcfn[place]bo[place] house. He denies chest pain or shortness of breath. He had a CT of the head/face/cervical spine/chest/abdomen/pelvis/thoracic spine/lumbar spine, pelvis x-ray, bilateral knee x-rays, a CXR, and a left hand x-ray-he was found to have an nondisplaced fracture of the inferior wall of the left orbit, and moderate prepatellar soft tissue swelling of the left knee but otherwise no fractures. His lab work was notable for a mild leukocytosis, microcytic anemia with an Hgb of 10.9, and initial lactate of 5.3, and a troponin of 33.7 with a repeat 2 hours later of 45.2. ECG with new RBBB and LAFB, but no definite ischemic changes. His repeat lactate came down 4.5 after IV fluids. He was given 1 dose of Augmentin and a tetanus shot. He will be admitted for fall with orbital fracture, closed head injury with likely concussion, elevated lactate, and elevated troponin. Discharge Exam General: No acute distress, nondiaphoretic, well-developed, well-nourished. Skin: Warm, dry. Scattered abrasions on his left hand, Left elbow, and bilateral knees. HEENT: PERRLA. EOM intact bilaterally, no nystagmus. Left eyelid with improving edema. Significant left periorbital ecchymosis remains. 1 cm laceration on left upper brow region without active bleeding, edges of skin well-approximated. Cardiac: Slightly tachycardic rate in 90s and regular rhythm without murmurs gallops or rubs. Pulm: Clear to auscultation bilaterally without wheezes, rales or rhonchi. Normal respiratory effort. 95% on room air. Abdominal: Soft, nondistended. Mild tenderness to palpation of LUQ. No rebound or guarding. Bowel sounds present. MSK: Significant left knee prepatellar swelling. Normal sensation and motor function in lower extremities bilaterally. Neuro: A&O x2 (baseline). No focal neurological deficits. Discharge Plan Discharge Items Patient Disposition: Transfer [facility] Living Fac Reason For Visit: ORBITAL FRACTURE, FALL, TRAUMA Discharge Diagnosis: Fall, left inferior orbital floor fracture, suspected concussion Condition on Discharge: Good Activity: Per Instructions section Non-emergency contact: Primary Care Provider Call non-emergency contact if: you have any medication questions, your symptoms worsen and your pain is not controlled Follow-up/Referrals: Shanna Pena CRNP [Primary Care Provider] - (Follow-up in 1-2 weeks) Diet: Carb Consistent or DM2 Addtl Attending Provider Instructions: Rodri, You were admitted to the hospital after sustaining a ground-level fall. You had extensive imaging completed, which revealed a left inferior orbital fracture. All of your other imaging was negative for acute injuries/fractures/abnormalities. You were started on Augmentin for prophylaxis with your orbital fracture. You are being discharged to [facility] for rehab. Upon discharge from the hospital: * Take Augmentin (oral antibiotic) twice daily with meals x 8 more tablets to complete a 7 day total antibiotic course. Side effects of oral antibiotics include GI upset, but taking this antibiotic with food can prevent associated nausea/vomiting/diarrhea. * Take Tylenol as needed for pain. * Your iron panel was consistent with iron deficiency anemia. You were started on ferrous sulfate 325 mg dailythis is an iron supplementation. Oral iron supplementation can cause constipation. If you develop constipation, you can use an [id number]-uiu-jvqdbex bowel regimen such as MiraLAX daily. * Continue your other home medications as prescribed. * Follow-up with your PCP in 1-2 weeks. Please return to the hospital if you experience any of the following: Chest pain, difficulty breathing, inability to tolerate oral intake, new or worsening confusion, passing out, or any other symptoms concerning for you. It was a pleasure taking care of you while you were in the hospital! Pending Studies at Discharge: No Stand-Alone Forms: My [facility] Skilled Items Patient informed of condition?: Yes DNR: No Discharge Level of Care: Skilled Communicable Disease: No Discharge Prognosis: Stable Lines: None Urinary Catheter: No Medications and DC Order Prescriptions: New ferrous sulfate 325 mg (65 mg iron) Tablet,Delayed Release (Dr/Ec) 325 mg PO QAM Qty: 30 0RF amoxicillin-pot clavulanate 875-125 mg Tablet 1 tab PO BIDM Qty: 8 0RF acetaminophen 325 mg Tablet 650 mg PO Q4H PRN (Reason: fever or pain) Qty: 90 0RF Continued aspirin 81 mg tablet,delayed release (DR/EC) 81 mg PO DAILY (DME) blood-glucose meter [OneTouch Ultra2 Meter] [facility] See Rx Instructions .Route Qty: 1 0RF Rx Instructions: Check 1 time daily walker with wheels and brakes and seat See Rx Instructions .ROUTE .COMPLEX Qty: 1 0RF Rx Instructions: 1 each; magnesium oxide 400 mg magnesium tablet 400 mg PO DAILY 30 Days Qty: 30 8RF Januvia 50 mg tablet 50 mg PO DAILY Qty: 90 3RF Hold Instructions: not taking insulin glargine [Lantus Solostar U-100 Insulin] 100 unit/mL (3 mL) insulin pen 15 unit subcut QPM Qty: 15 5RF Rx Instructions: will hold januvia pantoprazole 40 mg tablet,delayed release (DR/EC) See Rx Instructions .ROUTE .COMPLEX Qty: 90 3RF Dose Instruction: TAKE 1 TABLET EVERY DAY 30 MINUTES BEFORE BREAKFAST EVERY DAY Rx Instructions: TAKE 1 TABLET EVERY DAY 30 MINUTES BEFORE BREAKFAST EVERY DAY (DME) OneTouch Ultra Test Strip See Rx Instructions .Route Qty: 200 3RF Rx Instructions: Check 2 times daily (DME) lancets 33 gauge misc See Rx Instructions .Route Qty: 200 3RF Rx Instructions: Check twice daily metformin 1,000 mg tablet 1,000 mg PO BID Qty: 60 11RF memantine 10 mg tablet 10 mg PO BID Qty: 60 11RF atorvastatin 10 mg tablet 10 mg PO HS Qty: 90 3RF bupropion HCl [Wellbutrin XL] 150 mg tablet extended release 24 hr 150 mg PO .COMPLEX 90 Days Qty: 90 3RF Rx Instructions: 150 mg orally EVERY MORNING; silver sulfadiazine [Silvadene] 1 % cream 1 applic topical BID Qty: 25 1RF Rx Instructions: apply a 1.5 mm thickness hydrocortisone [Proctosol HC] 2.5 % cream with perineal applicator 1 applic SC DAILY PRN (Reason: hemorrhoids) Qty: 30 4RF donepezil 10 mg tablet 10 mg PO DAILY Qty: 90 3RF (DME) pen needle, diabetic, safety 30 gauge x 3/16" needle See Rx Instructions .Route Qty: 100 3RF Rx Instructions: use daily with insulin cyanocobalamin (vitamin B-12) 1,000 mcg capsule 1,000 mcg PO DAILY cholecalciferol (vitamin D3) 25 mcg (1,000 unit) capsule 3,000 unit PO DAILY potassium gluconate 595 mg (99 mg) tablet 595 mg PO DAILY docusate sodium [Colace] 100 mg capsule 100 mg PO DAILY Discharge Orders: Discharge Order (Routine); Ordered 04/28/25 Ordered By: Dalia Yee/Other Patient Handouts: High Blood Sugar (Hyperglycemia), Hypoglycemia (Low Blood Sugar), Managing Type 2 Diabetes, Special Foot Care for Diabetes Admission Data Admit Date/Time: 04/25/25 18:52 Attending Provider: Taina Allison Admit Provider: Taina Allison Primary Care Provider: Shanna Pena Other Providers: Taina Allison; [facility] Gallego [facility] Other Interventions: Discharge Summary Assessment (RN) Last Done: 04/28/25 14:18 Hospital Stay Data Consultations 04/25/25 18:23 ED Decision to Admit Stat Diagnostic Imagining Performed Lumbar Spine CT 04/25/25 14:11 EXAMINATION: CT lumbar spine W/O con CLINICAL HISTORY: Fall PRIORS: MR 06/16/2018 TECHNIQUE: Contiguous axial images were obtained through the lumbar spine without the use of intravenous contrast. Sagittal and coronal reformations are supplied. FINDINGS: Moderate osseous demineralization noted. Lordosis is preserved. No high-grade compression fracture. Moderate facet hypertrophic changes with no facet dislocation. Advanced facet hypertrophic changes at L5-S1. No paraspinal hematoma. Moderate to advanced atherosclerotic disease of the aorta and the [id number]. No retroperitoneal hemorrhage. IMPRESSION: No CT evidence of an acute osseous abnormality. Electronically signed by Maria E Torres 04-25-2025 5:09 PM Abdomen/Pelvis CT 04/25/25 14:12 EXAMINATION: Abdomen and pelvis CT with CLINICAL HISTORY: Fall, fell down hill, bruising left eye, head wound PRIORS: None TECHNIQUE: Contiguous axial images were obtained through the abdomen and pelvis with the use of intravenous contrast. Sagittal and coronal reformations are supplied. FINDINGS: Mild hypoventilatory changes at the lung bases. No pleural or pericardial effusion in the [id number]-wr-duga. No solid organ laceration or subcapsular hematoma. Liver is enlarged measuring 19 cm. The gallbladder, portal vein, spleen, stomach, adrenals, aorta and IVC are morphologically unremarkable. Pancreas is atrophic. Moderate to advanced atherosclerotic disease of the abdominal aorta extending into the bifurcation. Kidneys enhance symmetrically. Low-attenuation left renal lesion measuring 2.9 cm and fluid attenuation, most likely representing a cyst. No bowel wall hematoma, hemoperitoneum or free fluid. Severe diverticulosis of the descending and sigmoid colon. No dilated loops of bowel or pericolonic inflammatory change. No ascites, adenopathy or extraluminal gas. Lumbar spine is dictated under separate heading. Moderate osseous demineralization noted. IMPRESSION: 1. No CT evidence of an acute or traumatic abdominal abnormality. 2. Hepatomegaly. 3. Advanced diverticulosis of the descending and sigmoid colon. Electronically signed by Maria E Torres 04-25-2025 5:[address] 04/25/25 14:12 Clinical history: Injury Technique: Axial computed tomography images were obtained of the cervical spine without intravenous contrast. Sagittal and coronal reconstructions were obtained Findings: No fracture is identified. No listhesis is seen. No focal osseous lesion is evident. There is atlantoaxial osteoarthritis. At C2-3, there is a small left paracentral disc protrusion. There is no spinal stenosis. The neural foramen are patent At C3-4, there is mild spinal stenosis due to a disc bulge and a central disc protrusion. There is mild left neural foramen narrowing At C4-5, there is mild spinal stenosis due to a disc bulge and a right paracentral disc herniation. The neural foramen are patent At C5-6, there is mild spinal stenosis due to a disc bulge and a right paracentral disc protrusion. The neural foramen are patent At C6-7, there is a disc bulge without spinal stenosis. The neural foramen are patent At C7-T1, there is a disc bulge. There is no spinal stenosis. The neural foramen are patent There is a nodule in the left thyroid lobe. No foreign body is seen Impression: 1. No definite cervical spine fracture 2. Mild spinal stenosis from C3-4 through C5-6 3. Indeterminate thyroid nodule. A follow-up thyroid ultrasound could be obtained ACT 112: Positive. There are findings on this exam that require communication between the performing entity and the patient following Patient Test Result Information Act ([place] ACT 112) guidelines. Electronically signed by Ramon Cole 04-25-2025 4:[address] 04/25/25 14:12 Clinical history: Fall Technique: Axial computed tomography images were obtained of the chest after the administration of intravenous contrast Comparison is made to the prior CT dated 10/30/2017 Findings: There is an unchanged 8 mm nodular opacity in the right middle lobe, with unchanged adjacent centrilobular interstitial opacities. There is an unchanged 1.2 cm nodular opacity with irregular margins more inferiorly in the right middle lobe. There is bilateral lower lobe atelectasis. There is no pleural effusion or pneumothorax. There is no sign of pulmonary fibrosis or other diffuse interstitial process. No endobronchial lesion is seen There is no mediastinal, hilar, or axillary adenopathy. The thoracic aorta appears unremarkable with no sign of aneurysm or dissection. There is no pericardial effusion. There is extensive coronary atherosclerosis There is a nodule in the left thyroid lobe There is a small hiatal hernia. The spleen is mildly enlarged measuring 13.8 cm. No fracture is seen. No focal osseous lesion is evident Impression: 1. Unchanged right middle lobe nodular and interstitial opacities, benign given the long-term stability. This could be residual from a prior inflammatory process 2. Bilateral lower lobe atelectasis 3. Indeterminate thyroid nodule. A follow-up thyroid ultrasound could be obtained 4. Extensive coronary atherosclerosis 5. Small hiatal hernia 6. Mild splenomegaly ACT 112: Positive. There are findings on this exam that require communication between the performing entity and the patient following Patient Test Result Information Act ([place] ACT 112) guidelines. Electronically signed by Ramon Cole 04-25-2025 4:[address] 04/25/25 14:12 Technique: Axial computed tomography images were obtained of the brain without intravenous contrast. Comparison is made to the prior CT dated 10/25/2022 Findings: There is unchanged cerebral atrophy, within expected limits for the patient's age. Areas of decreased attenuation are seen within the periventricular white matter, likely representing chronic small vessel ischemic disease. There is no definite sign of acute or old infarction. No intracranial hemorrhage is evident. No definite mass lesion is seen on this noncontrast examination. There is no midline shift or other form of herniation. No hydrocephalus is seen. No fracture is identified. The orbits and the visualized paranasal sinuses appear unremarkable. The mastoid air cells appear clear. Impression: 1. Cerebral atrophy and chronic small vessel ischemic disease 2. Otherwise unremarkable noncontrast CT of the brain Electronically signed by Ramon Cole 04-25-2025 4:37 PM Pelvis X-Ray 04/25/25 14:12 EXAMINATION: X-ray pelvis 1 2 view routine CLINICAL HISTORY: Potential fracture, trauma PRIORS: None TECHNIQUE: Frontal view pelvis FINDINGS: Moderate osseous demineralization noted. Urinary bladder is partly distended with radio opaque material. Overlying bowel gas and stool obscures fine bone detail. Allowing for this, no displaced fracture or widening of the pubic symphysis. No soft tissue calcification or abnormality. IMPRESSION: No plain film evidence of an acute displaced fracture, within the limitations of the study. Electronically signed by Maria E Torres 04-25-2025 5:[address] 04/25/25 14:13 Clinical history: Trauma Technique: Axial computed tomography images were obtained of the facial bones without intravenous contrast. Sagittal and coronal reconstructions were obtained Findings: There is a suspected nondisplaced fracture of the inferior wall of the left orbit. No other fracture is identified. No focal osseous lesion is noted. There is mild frontal and ethmoid sinus mucosal thickening. The remainder of the paranasal sinuses appear clear without significant mucosal thickening, fluid, retention cyst, or mass. The ostiomeatal units appear patent bilaterally. The mastoid air cells appear clear The orbits appear unremarkable. No foreign body is seen. The nasal septum appears midline. No definite nasal polyp is noted Impression: Apparent nondisplaced fracture of the inferior wall of the left orbit Electronically signed by Ramon Cole 04-25-2025 4:[address] 04/25/25 14:13 EXAMINATION: CT thoracic spine W/O con CLINICAL HISTORY: Fall PRIORS: None TECHNIQUE: Contiguous axial images were obtained through the thoracic spine without the use of intravenous contrast. Sagittal and coronal reformations are supplied. FINDINGS: Moderate osseous demineralization is noted. Mild kyphosis present. No high-grade compression fracture of the thoracic vertebral bodies or facet dislocation. No displaced rib fracture in the [id number]. No osteophytic neuroforaminal stenosis. Mild diffuse facet hypertrophic changes. Mild to moderate degenerative disc disease throughout the lumbar spine. Multilevel anterior bridging osteophytes of the mid to lower thoracic spine. No paravertebral hematoma. IMPRESSION: No CT evidence of an acute osseous abnormality Electronically signed by Maria E Torres 04-25-2025 5:07 PM Chest X-Ray 04/25/25 15:12 EXAM: X-ray chest one-view portable CLINICAL HISTORY: Trauma PRIORS: 10/25/2022 TECHNIQUE: Supine AP chest FINDINGS: Large body habitus noted. Lung volumes are diminished. No airspace consolidation or pneumothorax. Heart size is normal. Trachea is patent. Osseous structures demonstrate no acute abnormality. No radiopaque foreign body. IMPRESSION: No plain film evidence of an acute cardiopulmonary process. A chest CT is also been performed which was dictated under separate heading. Electronically signed by Maria E Torres 04-25-2025 5:21 PM Hand X-Ray 04/25/25 16:13 EXAMINATION: X-ray hand left minimum 3 view routine CLINICAL HISTORY: Trauma PRIORS: None TECHNIQUE: Frontal, 2 oblique views and lateral view FINDINGS: Vascular calcifications present. Mild to moderate osseous demineralization noted. Carpal bones congruous. Metacarpals and phalanges normal in morphology with no acute fracture or dislocation. Visualized distal radius and ulna within normal limits. Mild to moderate osteoarthritis of the interphalangeal joints. IMPRESSION: No plain film evidence of an acute fracture or dislocation. Electronically signed by Maria E Torres 04-25-2025 5:25 PM Knee X-Ray 04/25/25 16:13 EXAMINATION: X-ray knee left 1 or 2 view routine CLINICAL HISTORY: Trauma PRIORS: None TECHNIQUE: Frontal and lateral crosstable view. FINDINGS: Mild osseous demineralization noted. Moderate to large degree of prepatellar soft tissue swelling noted. No acute displaced fracture or dislocation. Jbkq-[id number] degenerative change of the medial compartment. Mild joint space narrowing of the lateral compartment. No suprapatella joint effusion. Patella is not high riding. Vascular calcifications noted. IMPRESSION: Moderate prepatellar soft tissue swelling with no plain film evidence of an acute osseous abnormality. ACT 112: Positive. There are findings on this examination that require communication between the performing entity and the patient following Patient Test Result Information Act ([place] ACT 112) guidelines. Electronically signed by Maria E Torres 04-25-2025 5:27 PM Knee X-Ray 04/25/25 16:13 EXAMINATION: X-ray knee right 1 or 2 view CLINICAL HISTORY: Trauma PRIORS: None TECHNIQUE: Frontal and lateral view. FINDINGS: A right total knee arthroplasty is present with near anatomic alignment. No periprosthetic fracture or signs of loosening. Vascular calcifications present. Ossicles noted superior to the patella on the lateral view. No soft tissue swelling. IMPRESSION: Right total knee arthroplasty with no acute fracture or dislocation. Electronically signed by Maria E Torres 04-25-2025 5:27 PM Pending Results Patient Have Any Pending Studies at Discharge: No Discharge Instructions Given to Patient (Per Discharging Provider) Rodri, You were admitted to the hospital after sustaining a ground-level fall. You had extensive imaging completed, which revealed a left inferior orbital fracture. All of your other imaging was negative for acute injuries/fractures/abnormalities. You were started on Augmentin for prophylaxis with your orbital fracture. You are being discharged to [facility] for rehab. Upon discharge from the hospital: * Take Augmentin (oral antibiotic) twice daily with meals x 8 more tablets to complete a 7 day total antibiotic course. Side effects of oral antibiotics include GI upset, but taking this antibiotic with food can prevent associated nausea/vomiting/diarrhea. * Take Tylenol as needed for pain. * Your iron panel was consistent with iron deficiency anemia. You were started on ferrous sulfate 325 mg dailythis is an iron supplementation. Oral iron supplementation can cause constipation. If you develop constipation, you can use an [id number] bowel regimen such as MiraLAX daily. * Continue your other home medications as prescribed. * Follow-up with your PCP in 1-2 weeks. Please return to the hospital if you experience any of the following: Chest pain, difficulty breathing, inability to tolerate oral intake, new or worsening confusion, passing out, or any other symptoms concerning for you. It was a pleasure taking care of you while you were in the hospital! Supervising Physician Co-Signing Physician Notes PA Supervision Note: I did not personally see or examine the patient today, but I verified all becerra points of MARIELA Regan's assessment and plan with the following exceptions/additions: none Total Time Total Time Spent Total Time Spent (In Minutes): Greater than 30 minutes spent completing this discharge process including direct patient care, medication reconciliation, documentation, review of labs and images, and coordination of care. Coding Level of Care Code 16836 INP/OBS DISCH >30 MIN Diagnoses Fall W19.XXXA Orbital floor fracture S02.30XA High serum lactate R79.89 Elevated troponin R79.89
== END 2025-04-28 15:23 | DRG 89 ==
LOC: SUATTDRO → ED 12:34 → 2E 18:52